=== PATIENT | female | born 1940 | race Hispanic/Latino ===

== ENCOUNTER 2018-11-11 12:21 | Emergency (ER) | payer OTHER ==
--- NOTE | 2018-11-11 12:30 | Event Note ---
ED Screening Note Date of service: 11/11/18 Time: 12:28 ED Screening Note: This is a 77 y.o. F. that presents to the ER with cough and discomfort for 1 days. Reports symptoms similar to 4 months ago when she had pneumonia. This initial assessment/diagnostic orders/clinical plan/treatment(s) is/are subject to change based on patients health status, clinical progression and re- assessment by fellow clinical providers in the ED. Further treatment and workup at subsequent clinical providers discretion. Patient/guardian urged not to elope from the ED as their condition may be serious if not clinically assessed and managed. Initial orders include: CXR
[2018-11-11] MEDS ORDERED: PROVENTIL IH ONE (12:57)
[2018-11-11] MEDS ORDERED: SOLU-Medrol IV ONE (12:58)
--- NOTE | 2018-11-11 12:59 | Emergency Department Report ---
HPI - HPI HPI: 77 YO FEMALE DROPPED OFF AT ER BY FAMILY FOR COUGH AND WHEEZING. PT HOSP 4 M AGO FOR PNA AND NEVER GOT HER MEDS FILLED. SHE HAS NOT SEEN HER PCP SINCE. SHE DENIES TAKING ANY DAILY MEDS HERE. SCREENED IN TRIAGE BY BOB- FAMILY HAS LEFT ER PT DENIES FEVER; POS CHILLS CO CP WITH COUGH; AND "CONGESTION IN CHEST" WHEEZING AT HOME - NO NEBS/ INHALER <HUMBERTO RAIN A - Last Filed: 11/11/18 15:21> <LISA MARTIN P - Last Filed: 11/11/18 15:38> - General Chief Complaint: Upper Respiratory Infection Time Seen by Provider: 11/11/18 12:28 ED Past Medical Hx - Past Medical History Previous Medical History?: Yes Hx Diabetes: Yes Hx Asthma: Yes - Surgical History Past Surgical History?: No - Family History Family history: no significant - Social History Smoking Status: Never Smoker Substance Use Type: None <HUMBERTO RAIN A - Last Filed: 11/11/18 15:21> <LISA MARTIN P - Last Filed: 11/11/18 15:38> - Medications Home Medications: Home Medications Medication Instructions Recorded Confirmed Last Taken Type ALBUTEROL Inhaler (OR & NICU) 2 puff IH QID PRN #1 inhalation 11/11/18 Unknown Rx [ProAir HFA Inhaler] Cetirizine HCl [ZyrTEC] 10 mg PO DAILY #30 capsule 11/11/18 Unknown Rx DOXYCYCLINE Hyclate [Vibramycin 100 mg PO Q12HR #20 capsule 11/11/18 Unknown Rx CAP] Fluticasone [Flonase] 1 spray NS QDAY #1 bottle 11/11/18 Unknown Rx predniSONE [Deltasone] 20 mg PO DAILY #5 tablet 11/11/18 Unknown Rx ED Review of Systems ROS: Stated complaint: COUGHING/WHEEZING Other details as noted in HPI Comment: All other systems reviewed and negative <HUMBERTO RAIN A - Last Filed: 11/11/18 15:21> ROS: Stated complaint: COUGHING/WHEEZING Other details as noted in HPI <LISA MARTIN P - Last Filed: 11/11/18 15:38> Physical Exam - Physical Exam Vital Signs: Vital Signs 11/11/18 12:28 Temperature 98.7 F Pulse Rate 66 Respiratory 16 Rate Blood Pressure 155/54 O2 Sat by Pulse 98 Oximetry Physical Exam: ALERT TUOLUMNE POOR INFORMANT S1S2 WHEEZING BILATERAL NO EDEMA OR JVD ABD SNT <HUMBERTO RAIN A - Last Filed: 11/11/18 15:21> - Physical Exam Vital Signs: Vital Signs 11/11/18 12:28 Temperature 98.7 F Pulse Rate 66 Respiratory 16 Rate Blood Pressure 155/54 O2 Sat by Pulse 98 Oximetry <LISA MARTIN P - Last Filed: 11/11/18 15:38> ED Course Vital Signs 11/11/18 12:28 Temperature 98.7 F Pulse Rate 66 Respiratory 16 Rate Blood Pressure 155/54 O2 Sat by Pulse 98 Oximetry <HUMBERTO RAIN A - Last Filed: 11/11/18 15:21> Vital Signs 11/11/18 12:28 Temperature 98.7 F Pulse Rate 66 Respiratory 16 Rate Blood Pressure 155/54 O2 Sat by Pulse 98 Oximetry <LISA MARTIN P - Last Filed: 11/11/18 15:38> ED Medical Decision Making - Lab Data Result diagrams: 11/11/18 13:19 11/11/18 13:19 - Radiology Data Radiology results: report reviewed, image reviewed R PLEURAL EFFUSION - Medical Decision Making Lab Results 11/11/18 11/11/18 11/11/18 Range/Units 13:19 13:19 13:19 WBC 6.4 (4.5-11.0) K/mm3 RBC 4.58 (3.65-5.03) M/mm3 Hgb 14.2 (10.1-14.3) gm/dl Hct 42.7 (30.3-42.9) % MCV 93 (79-97) fl MCH 31 (28-32) pg MCHC 33 (30-34) % RDW 15.5 H (13.2-15.2) % Plt Count 233 (140-440) K/mm3 Lymph % (Auto) 22.1 (13.4-35.0) % Daggett % (Auto) 9.7 H (0.0-7.3) % Eos % (Auto) 1.6 (0.0-4.3) % Baso % (Auto) 0.5 (0.0-1.8) % Lymph # 1.4 (1.2-5.4) K/mm3 Daggett # 0.6 (0.0-0.8) K/mm3 Eos # 0.1 (0.0-0.4) K/mm3 Baso # 0.0 (0.0-0.1) K/mm3 Seg Neutrophils % 66.1 (40.0-70.0) % Seg Neutrophils # 4.2 (1.8-7.7) K/mm3 Sodium 136 L (137-145) mmol/L Potassium 3.9 (3.6-5.0) mmol/L Chloride 99.0 (98-107) mmol/L Carbon Dioxide 25 (22-30) mmol/L Anion Gap 16 mmol/L BUN 19 H (7-17) mg/dL Creatinine 1.0 (0.7-1.2) mg/dL Estimated GFR 54 ml/min BUN/Creatinine Ratio 19 % Glucose 85 (65-100) mg/dL Calcium 9.1 (8.4-10.2) mg/dL Total Bilirubin 0.30 (0.1-1.2) mg/dL Direct Bilirubin < 0.2 (0-0.2) mg/dL AST 27 (5-40) units/L ALT 17 (7-56) units/L Alkaline Phosphatase 50 (35-129) units/L Troponin T < 0.010 (0.00-0.029) ng/mL NT-Pro-B Natriuret Pep 191.6 (0-900) pg/mL Total Protein 7.2 (6.3-8.2) g/dL Albumin 4.0 (3.9-5) g/dL Albumin/Globulin Ratio 1.3 % Vital Signs 11/11/18 12:28 Temperature 98.7 F Pulse Rate 66 Respiratory 16 Rate Blood Pressure 155/54 O2 Sat by Pulse 98 Oximetry MEDICATED WITH SOLUMEDROL AND DUONEB WITH DEC WHEEZING XRAY NOTED 12 LEAD NAP LABS NOTED WILL DC HOME WITH DC PLAN OF CARE AND FOLLOW UP WITH PCP. - Differential Diagnosis URTI/PNA/ASTHMA AE <HUMBERTO RAIN - Last Filed: 11/11/18 15:21> - Lab Data Result diagrams: 11/11/18 13:19 11/11/18 13:19 - Medical Decision Making Attestation: Available for consultation <LISA MARTIN P - Last Filed: 11/11/18 15:38> Critical care attestation.: If time is entered above; I have spent that time in minutes in the direct care of this critically ill patient, excluding procedure time. <HUMBERTO RAIN A - Last Filed: 11/11/18 15:21> Critical care attestation.: If time is entered above; I have spent that time in minutes in the direct care of this critically ill patient, excluding procedure time. <LISA MARTIN P - Last Filed: 11/11/18 15:38> ED Disposition Is pt being admited?: No Does the pt Need Aspirin: No Time of Disposition: 15:03 <HUMBERTO RAIN A - Last Filed: 11/11/18 15:21> Is pt being admited?: No <LISA MARTIN P - Last Filed: 11/11/18 15:38> Clinical Impression: Asthma with acute exacerbation, URTI (acute upper respiratory infection) Disposition: TO HOME OR SELFCARE Condition: Stable Instructions: Asthma (ED) Additional Instructions: MEDS ORDERED TODAY FOLLOW UP WITH PCP ON THURSDAY HYDRATE WELL WITH WATER MOTRIN OR TYLENOL FOR PAIN OR FEVER OVER THE COUNTER DELSYM FOR COUGH Prescriptions: predniSONE [Deltasone] 20 mg PO DAILY #5 tablet Fluticasone [Flonase] 1 spray NS QDAY #1 bottle ALBUTEROL Inhaler (OR & NICU) [ProAir HFA Inhaler] 2 puff IH QID PRN #1 inhalation PRN Reason: Shortness Of Breath DOXYCYCLINE Hyclate [Vibramycin CAP] 100 mg PO Q12HR #20 capsule Cetirizine HCl [ZyrTEC] 10 mg PO DAILY #30 capsule Referrals: PRIMARY CARE, [Primary Care Provider] - 3-5 Days
--- NOTE | 2018-11-11 13:23 | XRay Report ---
CHEST 2 VIEWS INDICATION: cough, r/o pneumonia. COMPARISON: None. FINDINGS: Support devices: None. Heart: Within normal limits. Pulmonary vasculature: Normal. Lungs/pleura: No acute air space or interstitial disease. No pneumothorax. Additional findings: Degenerative change in the spine. IMPRESSION: 1. No acute findings. 2. No pneumonia. Signer Name: Mateo Parkinson MD Signed: 11/11/2018 1:18 PM Workstation Name: [id number]
[2018-11-11 13:53] LABS: Basophils % (Auto) 0.5 % (0.0-1.8); Eosinophils # (Auto) 0.1 K/mm3 (0.0-0.4); Eosinophils % (Auto) 1.6 % (0.0-4.3); Hematocrit 42.7 % (30.3-42.9); Hemoglobin 14.2 gm/dl (10.1-14.3); Lymphocytes # (Auto) 1.4 K/mm3 (1.2-5.4); Lymphocytes % (Auto) 22.1 % (13.4-35.0); Mean Corpuscular HGB Conc 33 % (30-34); Mean Corpuscular Volume 93 fl (79-97); Monocytes # (Auto) 0.6 K/mm3 (0.0-0.8); Monocytes % (Auto) 9.7 % (0.0-7.3); Platelet Count 233 K/mm3 (140-440); Red Blood Count 4.58 M/mm3 (3.65-5.03); Red Cell Distribution Width 15.5 % (13.2-15.2)
[2018-11-11 14:15] LABS: Calcium 9.1 mg/dL (8.4-10.2)
[2018-11-11 14:19] LABS: Alanine Aminotransferase 17 units/L (7-56); Bilirubin,Direct < 0.2 mg/dL (0-0.2)
[2018-11-11 16:03] VITALS: BP 142/79
== END 2018-11-11 16:03 | disposition home or self-care (01) ==
LOC: ED 12:21
DX: J45.901 Unspecified asthma with (acute) exacerbation (principal); J06.9 Acute upper respiratory infection, unspecified; E11.9 Type 2 diabetes mellitus without complications; J45.909 Unspecified asthma, uncomplicated
CPT/HCPCS: 36415; 71046; 80048; 80076; 83880; 84484; 85025; 93005; 93010; 96374; 99284; J2930; 94640

== ENCOUNTER 2018-12-12 15:21 | Emergency (ER) | payer SELFPAY ==
--- NOTE | 2018-12-12 15:45 | Event Note ---
ED Screening Note Date of service: 12/12/18 Time: 15:41 ED Screening Note: This is a 78 y.o. F. that presents to the ER with headache, left sided facial swelling, and bruising. Patient states she slipped getting out of the tub yesterday and hit her head. This initial assessment/diagnostic orders/clinical plan/treatment(s) is/are subject to change based on patients health status, clinical progression and re- assessment by fellow clinical providers in the ED. Further treatment and workup at subsequent clinical providers discretion. Patient/guardian urged not to elope from the ED as their condition may be serious if not clinically assessed and managed. Initial orders include: CT of head and facial bones
--- NOTE | 2018-12-12 19:06 | Cat Scan Report ---
CT head/brain wo con INDICATION / CLINICAL INFORMATION: 78 years Female; headache. TECHNIQUE: Routine CT head without contrast. All CT scans at this location are performed using CT dos e reduction for ALARA by means of automated exposure control. COMPARISON: None. FINDINGS: BRAIN / INTRACRANIAL CONTENTS: Lacunar infarct versus perivascular space seen in the inferior ganglio capsular region on the right. Similar, less prominent finding noted on the left. No acute hemorrhage, mass effect, midline shift, hydrocephalus, or acute, large territorial infarct. Mild cerebral and cerebellar atrophy. There are areas of decreased attenuation in the white matter of the cerebral hemispheres. These are n onspecific findings and may be related to microangiopathy (hypertension, diabetes, atherosclerosis), given the patient's age. It might be difficult to evaluate for small areas of ischemia without diffus ion imaging by MRI. CRANIOCERVICAL JUNCTION: No significant abnormality. ORBITS: No significant abnormality of visualized orbits. SINUSES / MASTOIDS: There is mild mucosal thickening in the mastoids. Mild mucosal thickening also se en in the left sphenoid sinus. ADDITIONAL FINDINGS: Subcutaneous soft tissue swelling seen in the left periorbital region, laterally . No definitive signs of underlying fracture appreciated. Atherosclerotic disease seen in the anterior circulation. IMPRESSION: 1. No focal mass, intracranial hemorrhage, hydrocephalus, or acute, large territorial infarct. Signer Name: Miller Sosa MD, III Signed: 12/12/2018 7:01 PM Workstation Name: [id number]
--- NOTE | 2018-12-12 19:10 | Cat Scan Report ---
CT facial bones wo con INDICATION / CLINICAL INFORMATION: 78 years Female; headache, left sided bruising, r/o fx. TECHNIQUE: Thin cut axial images obtained to the facial bones. Sagittal and coronal reconstructions performed. A ll CT scans at this location are performed using CT dose reduction for ALARA by means of automated ex posure control. COMPARISON: None available. FINDINGS: Subcutaneous soft tissue swelling is seen in the periorbital region on the left, laterally. Findings extend in the left malar region, minimally. No signs of underlying facial fracture appreciated. There is mild mucosal thickening in the ethmoids and maxillary antra. Small mucous retention cyst/gema yp suggested inferiorly on the left. IMPRESSION: 1. No signs of acute bony facial trauma. Signer Name: Miller Sosa MD, III Signed: 12/12/2018 7:06 PM Workstation Name: [id number]
--- NOTE | 2018-12-12 19:45 | Emergency Department Report ---
ED Head Trauma HPI - General Chief complaint: Fall Stated complaint: LFT SIDE FACE SWELLING/KNOT PAIN Time Seen by Provider: 12/12/18 15:41 Source: family Mode of arrival: Ambulatory Limitations: Other - History of Present Illness Initial comments: Patient is a 78-year-old female who suffered a fall this morning. Patient was getting out of the tub and slipped and hit her left side of her face as well as the back of her head. Patient states there was no loss consciousness but she did have a headache and felt some mild dizziness when this occurred. Patient is complaining of a mild headache which is a 6 out of 10 in severity. She denies gait disturbances or nausea vomiting. - Related Data Previous Rx's Medication Instructions Recorded Last Taken Type ALBUTEROL Inhaler (OR & NICU) 2 puff IH QID PRN #1 inhalation 11/11/18 Unknown Rx [ProAir HFA Inhaler] Cetirizine HCl [ZyrTEC] 10 mg PO DAILY #30 capsule 11/11/18 Unknown Rx DOXYCYCLINE Hyclate [Vibramycin 100 mg PO Q12HR #20 capsule 11/11/18 Unknown Rx CAP] Fluticasone [Flonase] 1 spray NS QDAY #1 bottle 11/11/18 Unknown Rx predniSONE [Deltasone] 20 mg PO DAILY #5 tablet 11/11/18 Unknown Rx traMADol [Ultram] 50 mg PO Q6HR PRN #10 tablet 12/12/18 Unknown Rx Allergies/Adverse reactions: Allergies Allergy/AdvReac Type Severity Reaction Status Date / Time No Known Allergies Allergy Verified 12/12/18 15:23 ED Review of Systems ROS: Stated complaint: LFT SIDE FACE SWELLING/KNOT PAIN Other details as noted in HPI Comment: All other systems reviewed and negative ED Past Medical Hx - Past Medical History Hx Diabetes: Yes Hx Asthma: Yes - Social History Smoking Status: Never Smoker Substance Use Type: None - Medications Home Medications: Home Medications Medication Instructions Recorded Confirmed Last Taken Type ALBUTEROL Inhaler (OR & NICU) 2 puff IH QID PRN #1 inhalation 11/11/18 Unknown Rx [ProAir HFA Inhaler] Cetirizine HCl [ZyrTEC] 10 mg PO DAILY #30 capsule 11/11/18 Unknown Rx DOXYCYCLINE Hyclate [Vibramycin 100 mg PO Q12HR #20 capsule 11/11/18 Unknown Rx CAP] Fluticasone [Flonase] 1 spray NS QDAY #1 bottle 11/11/18 Unknown Rx predniSONE [Deltasone] 20 mg PO DAILY #5 tablet 11/11/18 Unknown Rx traMADol [Ultram] 50 mg PO Q6HR PRN #10 tablet 12/12/18 Unknown Rx ED Physical Exam - General Limitations: Other General appearance: alert, in no apparent distress - Head Head exam: Present: normocephalic. Absent: atraumatic (patient with swelling and bruising above and below the left eye.Extraocular ocular movements are intact. There is tenderness on palpation of this area.) - Eye Eye exam: Present: normal appearance, PERRL, EOMI - ENT ENT exam: Present: mucous membranes moist - Neck Neck exam: Present: normal inspection, full ROM. Absent: tenderness - Respiratory Respiratory exam: Present: normal lung sounds bilaterally. Absent: respiratory distress, wheezes, rales, rhonchi - Cardiovascular Cardiovascular Exam: Present: regular rate, normal rhythm. Absent: systolic murmur, diastolic murmur, rubs, gallop - GI/Abdominal GI/Abdominal exam: Present: soft, normal bowel sounds. Absent: distended, tenderness, guarding, rebound - Extremities Exam Extremities exam: Present: normal inspection - Back Exam Back exam: Present: normal inspection - Neurological Exam Neurological exam: Present: alert, oriented X3 - Psychiatric Psychiatric exam: Present: normal affect, normal mood - Skin Skin exam: Present: warm, dry, intact, normal color. Absent: rash ED Course Vital Signs 12/12/18 12/12/18 12/12/18 15:42 18:18 18:31 Temperature 98.4 F Pulse Rate 70 Respiratory 20 Rate Blood Pressure 140/48 141/52 O2 Sat by Pulse 95 97 98 Oximetry 12/12/18 18:34 Temperature Pulse Rate Respiratory 20 Rate Blood Pressure O2 Sat by Pulse 97 Oximetry - Radiology Data Radiology results: report reviewed (T of the head without contrast and the f acial bones are within normal limits and showed no intracranial bleed or fracture) Critical care attestation.: If time is entered above; I have spent that time in minutes in the direct care of this critically ill patient, excluding procedure time. ED Disposition Clinical Impression: Closed head injury Qualifiers: Encounter type: initial encounter Qualified Code(s): S09.90XA - Unspecified injury of head, initial encounter Facial contusion Qualifiers: Encounter type: initial encounter Qualified Code(s): S00.83XA - Contusion of other part of head, initial encounter Disposition: TO HOME OR SELFCARE Is pt being admited?: No Does the pt Need Aspirin: No Condition: Stable Instructions: Minor Head Injury (ED), Black Eye (ED) Prescriptions: traMADol [Ultram] 50 mg PO Q6HR PRN #10 tablet PRN Reason: Pain Time of Disposition: 19:47
[2018-12-12] MEDS ORDERED: ULTRAM PO ONE (19:47)
[2018-12-12 20:39] VITALS: BP 114/57
== END 2018-12-12 20:30 | disposition home or self-care (01) ==
LOC: ED 15:21
DX: S00.83XA Contusion of other part of head, initial encounter (principal); S09.90XA Unspecified injury of head, initial encounter; J45.909 Unspecified asthma, uncomplicated; E11.9 Type 2 diabetes mellitus without complications; W01.0XXA Fall on same level from slipping, tripping and stumbling without subsequent striking against object, initial encounter; Y93.89 Activity, other specified; Y92.89 Other specified places as the place of occurrence of the external cause; Y99.8 Other external cause status
CPT/HCPCS: 70450; 70486

== ENCOUNTER 2018-12-21 11:08 | Emergency (ER) | payer MEDICARE ==
[2018-12-21 11:23] VITALS: BP 155/56
--- NOTE | 2018-12-21 11:24 | Emergency Department Report ---
Blank Doc - Documentation Documentation: 78-year-old female that presents with URI symptoms. This initial assessment/diagnostic orders/clinical plan/treatment(s) is/are subject to change based on patient's health status, clinical progression and re- assessment by fellow clinical providers in the ED. Further treatment and workup at subsequent clinical providers discretion. Patient/guardians urged not to elope from the ED as their condition may be serious if not clinically assessed and managed. Initial orders include: 1- Patient sent to [facility] for further evaluation and treatment 2- cxr
--- NOTE | 2018-12-21 12:17 | XRay Report ---
CHEST PA AND LATERAL VIEWS INDICATION: cough. COMPARISON: 11/11/2018 FINDINGS: Support devices: None Heart: Stable. Lungs/Pleura: No acute pulmonary or pleural findings. IMPRESSION: 1. No active disease and no interval change. Signer Name: Orlando Lubin MD Signed: 12/21/2018 12:13 PM Workstation Name: [id number]
[2018-12-21] MEDS ORDERED: ALBUTEROL 2.5 MG/3 ML NEBU IH ONE (13:00)
[2018-12-21] MEDS ORDERED: IPRATROPIUM 0.02% NEBU 2.5 ML IH ONE (13:00)
[2018-12-21] MEDS ORDERED: FUROSEMIDE 20 MG TAB PO ONE (13:01)
--- NOTE | 2018-12-21 15:08 | Emergency Department Report ---
ED Asthma HPI - General Chief Complaint: Upper Respiratory Infection Stated Complaint: COUGH/WHEEZING Time Seen by Provider: 12/21/18 11:22 Source: family Mode of arrival: Ambulatory Limitations: No Limitations - History of Present Illness Initial Comments: Is a 78-year-old female who is here complaining of a cough congestion and wheezing. Patient states that she no longer has albuterol inhaler. Patient's states she was she caught a mild cold approximate 2-3 weeks ago was continued to have cough and wheeze. Patient states she has subjective fevers and chills. She denies nausea vomiting diarrhea neck stiffness or sore throat at this time. - Related Data Previous Rx's Medication Instructions Recorded Last Taken Type ALBUTEROL Inhaler (OR & NICU) 2 puff IH QID PRN #1 inhalation 11/11/18 Unknown Rx [ProAir HFA Inhaler] Cetirizine HCl [ZyrTEC] 10 mg PO DAILY #30 capsule 11/11/18 Unknown Rx DOXYCYCLINE Hyclate [Vibramycin 100 mg PO Q12HR #20 capsule 11/11/18 Unknown Rx CAP] Fluticasone [Flonase] 1 spray NS QDAY #1 bottle 11/11/18 Unknown Rx predniSONE [Deltasone] 20 mg PO DAILY #5 tablet 11/11/18 Unknown Rx traMADol [Ultram] 50 mg PO Q6HR PRN #10 tablet 12/12/18 Unknown Rx ALBUTEROL Inhaler (OR & NICU) 2 puff IH QID PRN #1 inhalation 12/21/18 Unknown Rx [ProAir HFA Inhaler] Azithromycin [Zithromax Z-CARMEN] 250 mg PO DAILY #6 tablet 12/21/18 Unknown Rx Benzonatate [Tessalon Perles] 100 mg PO Q8HR #10 capsule 12/21/18 Unknown Rx Furosemide [Lasix] 20 mg PO QDAY #7 tablet 12/21/18 Unknown Rx Allergies Allergy/AdvReac Type Severity Reaction Status Date / Time No Known Allergies Allergy Verified 12/12/18 15:23 ED Review of Systems ROS: Stated complaint: COUGH/WHEEZING Other details as noted in HPI Comment: All other systems reviewed and negative Musculoskeletal: other (lower extremity edema chronically. has been off lasix for 'months') ED Past Medical Hx - Past Medical History Previous Medical History?: Yes Hx Diabetes: Yes Hx Asthma: Yes - Surgical History Past Surgical History?: No - Social History Smoking Status: Never Smoker Substance Use Type: None - Medications Home Medications: Home Medications Medication Instructions Recorded Confirmed Last Taken Type ALBUTEROL Inhaler (OR & NICU) 2 puff IH QID PRN #1 inhalation 11/11/18 Unknown Rx [ProAir HFA Inhaler] Cetirizine HCl [ZyrTEC] 10 mg PO DAILY #30 capsule 11/11/18 Unknown Rx DOXYCYCLINE Hyclate [Vibramycin 100 mg PO Q12HR #20 capsule 11/11/18 Unknown Rx CAP] Fluticasone [Flonase] 1 spray NS QDAY #1 bottle 11/11/18 Unknown Rx predniSONE [Deltasone] 20 mg PO DAILY #5 tablet 11/11/18 Unknown Rx traMADol [Ultram] 50 mg PO Q6HR PRN #10 tablet 12/12/18 Unknown Rx ALBUTEROL Inhaler (OR & NICU) 2 puff IH QID PRN #1 inhalation 12/21/18 Unknown Rx [ProAir HFA Inhaler] Azithromycin [Zithromax Z-CARMEN] 250 mg PO DAILY #6 tablet 12/21/18 Unknown Rx Benzonatate [Tessalon Perles] 100 mg PO Q8HR #10 capsule 12/21/18 Unknown Rx Furosemide [Lasix] 20 mg PO QDAY #7 tablet 12/21/18 Unknown Rx ED Physical Exam - General Limitations: No Limitations General appearance: alert, in no apparent distress - Head Head exam: Present: atraumatic, normocephalic - Eye Eye exam: Present: normal appearance - ENT ENT exam: Present: mucous membranes moist - Neck Neck exam: Present: normal inspection. Absent: tenderness, meningismus - Respiratory Respiratory exam: Present: normal lung sounds bilaterally, wheezes, prolonged expiratory. Absent: respiratory distress, rales, rhonchi, stridor - Cardiovascular Cardiovascular Exam: Present: regular rate, normal rhythm, normal heart sounds. Absent: systolic murmur, diastolic murmur, rubs, gallop - GI/Abdominal GI/Abdominal exam: Present: soft, normal bowel sounds. Absent: distended, tenderness, guarding, rebound - Extremities Exam Extremities exam: Present: other (+2 edema bilateral lower legs) - Back Exam Back exam: Present: normal inspection - Neurological Exam Neurological exam: Present: alert, oriented X3 - Psychiatric Psychiatric exam: Present: normal affect, normal mood - Skin Skin exam: Present: warm, dry, intact, normal color. Absent: rash ED Course Vital Signs 12/21/18 11:21 Temperature 98.1 F Pulse Rate 71 Respiratory 20 Rate Blood Pressure 155/56 O2 Sat by Pulse 98 Oximetry ED Medical Decision Making - Radiology Data Ordering Physician: TIKI ECHOLS NP Date of Service: 12/21/18 Procedure(s): XR chest routine 2V Accession Number(s): [id number] cc: TIKI ECHOLS NP Fluoro Time In Minutes: CHEST PA AND LATERAL VIEWS INDICATION: cough. COMPARISON: 11/11/2018 FINDINGS: Support devices: None Heart: Stable. Lungs/Pleura: No acute pulmonary or pleural findings. IMPRESSION: 1. No active disease and no interval change. Signer Name: Orlando Lubin MD Signed: 12/21/2018 12:13 PM - Medical Decision Making Patient is a 78-year-old female who is presenting with cough congestion and a mild wheeze. Patient was given a neb treatment say she feels much improved. Because of leg edema patient was given some Lasix as well but does not appear to have any pulmonary edema on chest x-ray. Patient had refills of her medications to control her symptoms and the patient be discharged home. Critical care attestation.: If time is entered above; I have spent that time in minutes in the direct care of this critically ill patient, excluding procedure time. ED Disposition Clinical Impression: Chronic bronchitis Asthma exacerbation Qualifiers: Asthma severity: moderate Asthma persistence: unspecified Qualified Code(s): J45.901 - Unspecified asthma with (acute) exacerbation Disposition: -01 TO HOME OR SELFCARE Is pt being admited?: No Does the pt Need Aspirin: No Condition: Stable Instructions: Chronic Bronchitis (ED), Asthma (ED) Referrals: PRIMARY CARE, [Primary Care Provider] - 3-5 Days Time of Disposition: 15:10
== END 2018-12-21 15:28 | disposition home or self-care (01) ==
LOC: ED 11:08
DX: J45.901 Unspecified asthma with (acute) exacerbation (principal); E11.9 Type 2 diabetes mellitus without complications; Z79.899 Other long term (current) drug therapy
CPT/HCPCS: 71046; 94640

== ENCOUNTER 2019-03-18 18:06 | Inpatient (IN) | payer MEDICARE ==
[2019-03-18] MEDS ORDERED: methylPREDNISolone Sod Succinate 125 MG/2 ML INJ IV ONE (19:00)
[2019-03-18] MEDS ORDERED: IPRATROPIUM/ALBUTEROL SULFATE 3 ML AMPUL.NEB IH ONE (19:03)
[2019-03-18] MEDS ORDERED: MAGNESIUM SULFATE 2 GM/50 ML BAG IV ONE (19:03)
--- NOTE | 2019-03-18 19:04 | Emergency Department Report ---
ED Shortness of Breath HPI - General Chief Complaint: Dyspnea/Respdistress Stated Complaint: DIFFICULTY BREATHING Time Seen by Provider: 03/18/19 19:00 Source: EMS Mode of arrival: Ambulatory Limitations: No Limitations - History of Present Illness Initial Comments: Patient is a 78-year-old female who presents to [facility] complains of difficulty breathing and shortness of breath, cough and wheezing. Patient states this started 1 day ago. Patient states her symptoms are better with rest and worse with exertion. Patient states her symptoms are also worse with lying flat. Patient states she has a history of asthma and COPD. Patient states this feels like an asthma attack. Patient was brought in by EMS. Patient denies chest pain. Patient denies abdominal pain. Patient denies headache. Patient denies blurry vision. Patient states she took multiple nebulizers at home with no improvement. MD Complaint: shortness of breath, cough, "asthma attack" -: Sudden Severity: severe Pain Scale: 0 Consistency: constant Improves With: oxygen, rest, bronchodilators, upright position Worsens With: lying flat, exertion, movement, coughing, inspiration Known History Of: COPD, asthma Treatments Prior to Arrival: oxygen, bronchodilator - Related Data Home Oxygen Therapy: No Home Medications Medication Instructions Recorded Confirmed Last Taken Amlodipine Besylate [Norvasc] 1 tab PO DAILY 03/18/19 03/18/19 Unknown Fluticasone/Salmeterol [Advair 1 puff IH BID 03/18/19 03/18/19 Unknown Diskus 100-50 mcg] Levothyroxine [Synthroid] 1 tab PO DAILY 03/18/19 03/18/19 Unknown Omeprazole 1 cap PO DAILY 03/18/19 03/18/19 Unknown Roflumilast [Daliresp] 1 tab PO DAILY 03/18/19 03/18/19 Unknown Sertraline [Zoloft] 1 tab PO DAILY 03/18/19 03/18/19 Unknown Simvastatin 40 mg PO HS 03/18/19 03/18/19 Unknown Torsemide [Demadex] 2 tab PO DAILY 03/18/19 03/18/19 Unknown metFORMIN [Glucophage] 1 tab PO DAILY 03/18/19 03/18/19 Unknown risperiDONE [RisperDAL] 1 tab PO BID 03/18/19 03/18/19 Unknown Previous Rx's Medication Instructions Recorded Last Taken Type predniSONE [Deltasone] 20 mg PO DAILY #5 tablet 11/11/18 Unknown Rx Allergies Allergy/AdvReac Type Severity Reaction Status Date / Time No Known Allergies Allergy Verified 12/12/18 15:23 ED Review of Systems ROS: Stated complaint: DIFFICULTY BREATHING Other details as noted in HPI Constitutional: denies: chills, fever Eyes: denies: eye pain, eye discharge, vision change ENT: denies: ear pain, throat pain Respiratory: cough, shortness of breath, SOB with exertion, SOB at rest, wheezing Cardiovascular: denies: chest pain, palpitations Endocrine: no symptoms reported Gastrointestinal: denies: abdominal pain, nausea, diarrhea Genitourinary: denies: urgency, dysuria, discharge Musculoskeletal: denies: back pain, joint swelling, arthralgia Skin: denies: rash, lesions Neurological: denies: headache, weakness, paresthesias Psychiatric: denies: anxiety, depression Hematological/Lymphatic: denies: easy bleeding, easy bruising ED Past Medical Hx - Past Medical History Previous Medical History?: Yes Hx Hypertension: Yes Hx Diabetes: Yes Hx Asthma: Yes - Surgical History Past Surgical History?: No - Family History Family history: no significant - Social History Smoking Status: Former Smoker Substance Use Type: None - Medications Home Medications: Home Medications Medication Instructions Recorded Confirmed Last Taken Type predniSONE [Deltasone] 20 mg PO DAILY #5 tablet 11/11/18 03/18/19 Unknown Rx Amlodipine Besylate [Norvasc] 1 tab PO DAILY 03/18/19 03/18/19 Unknown History Fluticasone/Salmeterol [Advair 1 puff IH BID 03/18/19 03/18/19 Unknown History Diskus 100-50 mcg] Levothyroxine [Synthroid] 1 tab PO DAILY 03/18/19 03/18/19 Unknown History Omeprazole 1 cap PO DAILY 03/18/19 03/18/19 Unknown History Roflumilast [Daliresp] 1 tab PO DAILY 03/18/19 03/18/19 Unknown History Sertraline [Zoloft] 1 tab PO DAILY 03/18/19 03/18/19 Unknown History Simvastatin 40 mg PO HS 03/18/19 03/18/19 Unknown History Torsemide [Demadex] 2 tab PO DAILY 03/18/19 03/18/19 Unknown History metFORMIN [Glucophage] 1 tab PO DAILY 03/18/19 03/18/19 Unknown History risperiDONE [RisperDAL] 1 tab PO BID 03/18/19 03/18/19 Unknown History ED Physical Exam - General Limitations: No Limitations General appearance: alert, in distress - Head Head exam: Present: atraumatic, normocephalic - Eye Eye exam: Present: normal appearance - ENT ENT exam: Present: mucous membranes moist - Neck Neck exam: Present: normal inspection - Respiratory Respiratory exam: Present: respiratory distress, wheezes, decreased breath s ounds - Cardiovascular Cardiovascular Exam: Present: regular rate, normal rhythm. Absent: systolic murmur, diastolic murmur, rubs, gallop - GI/Abdominal GI/Abdominal exam: Present: soft, normal bowel sounds. Absent: distended, tenderness, guarding - Extremities Exam Extremities exam: Present: normal inspection - Back Exam Back exam: Present: normal inspection - Neurological Exam Neurological exam: Present: alert, oriented X3 - Psychiatric Psychiatric exam: Present: normal affect, normal mood - Skin Skin exam: Present: warm, dry, intact, normal color. Absent: rash ED Course Vital Signs 03/18/19 03/18/19 03/18/19 18:40 18:45 19:15 Temperature 98.6 F 98.6 F 98.9 F Pulse Rate 84 81 78 Pulse Rate [ Anterior Bilateral Throughout] Respiratory 17 17 19 Rate Respiratory Rate [Anterior Bilateral Throughout] Blood Pressure 130/76 Blood Pressure 116/37 124/68 [Left] O2 Sat by Pulse 99 98 100 Oximetry 03/18/19 03/18/19 03/18/19 19:26 19:30 20:30 Temperature Pulse Rate 81 Pulse Rate [ 80 Anterior Bilateral Throughout] Respiratory 21 22 Rate Respiratory 27 H Rate [Anterior Bilateral Throughout] Blood Pressure 128/48 120/39 Blood Pressure [Left] O2 Sat by Pulse 100 96 Oximetry 03/18/19 03/18/19 03/18/19 20:58 21:00 21:09 Temperature Pulse Rate 82 91 H 83 Pulse Rate [ Anterior Bilateral Throughout] Respiratory 19 23 28 H Rate Respiratory Rate [Anterior Bilateral Throughout] Blood Pressure 120/39 130/42 130/42 Blood Pressure [Left] O2 Sat by Pulse 97 96 96 Oximetry 03/18/19 03/18/19 03/18/19 21:16 21:20 21:30 Temperature Pulse Rate 84 83 93 H Pulse Rate [ Anterior Bilateral Throughout] Respiratory 27 H 26 H 24 Rate Respiratory Rate [Anterior Bilateral Throughout] Blood Pressure 127/41 135/46 135/46 Blood Pressure [Left] O2 Sat by Pulse 96 95 96 Oximetry 03/18/19 03/18/19 03/18/19 21:40 21:50 22:00 Temperature Pulse Rate 85 86 83 Pulse Rate [ Anterior Bilateral Throughout] Respiratory 26 H 22 25 H Rate Respiratory Rate [Anterior Bilateral Throughout] Blood Pressure 135/49 130/42 126/48 Blood Pressure [Left] O2 Sat by Pulse 97 95 94 Oximetry 03/18/19 03/18/19 22:10 22:20 Temperature Pulse Rate 77 83 Pulse Rate [ Anterior Bilateral Throughout] Respiratory 27 H 25 H Rate Respiratory Rate [Anterior Bilateral Throughout] Blood Pressure 126/48 129/54 Blood Pressure [Left] O2 Sat by Pulse 97 96 Oximetry - Reevaluation(s) Reevaluation #1: Patient's work of breathing has improved. Patient's lung sounds have improved. 03/18/19 19:58 Reevaluation #2: I discussed all results the patient. Discussed plan of care with patient. patient agrees plan of care. Patient will be admitted to the hospitalist service. 03/18/19 20:07 - Consultations Consultation #1: Hospitalist consult for admission. Hospitalist admit patient. 03/18/19 20:06 ED Medical Decision Making - Lab Data Result diagrams: 03/18/19 19:06 03/18/19 19:06 - EKG Data -: EKG Interpreted by Ca EKG shows normal: sinus rhythm, axis, intervals, QRS complexes, ST-T waves Rate: normal - Radiology Data Radiology results: report reviewed, image reviewed CHEST 1 VIEW 03/18/2019 7:10 PM INDICATION / CLINICAL INFORMATION: Dyspnea. COMPARISON: Chest x-ray 12/21/2018 FINDINGS: SUPPORT DEVICES: None. HEART / MEDIASTINUM: Cardiac silhouette is enlarged for AP technique. LUNGS / PLEURA: No significant pulmonary or pleural abnormality. No pneumothorax. ADDITIONAL FINDINGS: No significant additional findings. IMPRESSION: 1. Stable cardiomegaly without CHF - Medical Decision Making Patient is a 78-year-old female that presents emergency room with complaints of difficulty breathing shortness of breath. Patient found to have status asthmaticus and a COPD exacerbation. Patient admitted to the hospital service. Patient given multiple medications and patient continued to have difficulties in breathing and wheezing. Patient's work to breathe did improve with magnesium, DuoNeb, Solu-Medrol. Patient was given antibiotics empirically. Patient's labs essentially unremarkable except for hypokalemia. Patient given a K rider. - Differential Diagnosis sob, jose, COPD exacerbation, status asthmaticus. Pneumonia. Critical Care Time: Yes Critical care time in (mins) excluding proc time.: 35 Critical care attestation.: If time is entered above; I have spent that time in minutes in the direct care of this critically ill patient, excluding procedure time. Critical Care Time: 35 minutes ED Disposition Clinical Impression: Hypokalemia, SOB (shortness of breath), Difficulty breathing, COPD exacerbation Status asthmaticus Qualifiers: Asthma severity: moderate Asthma persistence: persistent Qualified Code(s): J45.42 - Moderate persistent asthma with status asthmaticus Disposition: OP ADMIT IP TO THIS HOSP Is pt being admited?: Yes Does the pt Need Aspirin: No Condition: Fair Time of Disposition: 20:07
[2019-03-18 19:22] LABS: Basophils % (Auto) 0.3 % (0.0-1.8); Eosinophils % (Auto) 0.4 % (0.0-4.3); Hematocrit 35.2 % (30.3-42.9); Hemoglobin 11.6 gm/dl (10.1-14.3); Lymphocytes % (Auto) 8.9 % (13.4-35.0); Mean Corpuscular HGB Conc 33 % (30-34); Mean Corpuscular Volume 93 fl (79-97); Monocytes # (Auto) 0.4 K/mm3 (0.0-0.8); Monocytes % (Auto) 3.8 % (0.0-7.3); Platelet Count 292 K/mm3 (140-440); Red Blood Count 3.79 M/mm3 (3.65-5.03); Red Cell Distribution Width 16.2 % (13.2-15.2)
[2019-03-18 19:44] LABS: Alanine Aminotransferase 16 units/L (7-56); Albumin 3.5 g/dL (3.9-5); BUN/Creatinine Ratio 17; Blood Urea Nitrogen 15 mg/dL (7-17); Calcium 8.8 mg/dL (8.4-10.2); Hemolysis Index 11
[2019-03-18] MEDS ORDERED: CEFEPIME/NS 2 GM/100 ML 2 GM/100 ML BAG IV ONE (20:02)
--- NOTE | 2019-03-18 21:17 | XRay Report ---
CHEST 1 VIEW 03/18/2019 7:10 PM INDICATION / CLINICAL INFORMATION: Dyspnea. COMPARISON: Chest x-ray 12/21/2018 FINDINGS: SUPPORT DEVICES: None. HEART / MEDIASTINUM: Cardiac silhouette is enlarged for AP technique. LUNGS / PLEURA: No significant pulmonary or pleural abnormality. No pneumothorax. ADDITIONAL FINDINGS: No significant additional findings. IMPRESSION: 1. Stable cardiomegaly without CHF Signer Name: Davin Vera MD Signed: 03/18/2019 9:12 PM Workstation Name: [id number]
[2019-03-18] MEDS: POTASSIUM CHLORIDE 10 MEQ 10 MEQ/100 ML BAG IV SCH ×2 (21:29→23:52)
[2019-03-18] MEDS ORDERED: ALBUTEROL 2.5 MG/3 ML NEBU IH PRN (21:33)
[2019-03-18] MEDS ORDERED: ONDANSETRON 4 MG/2 ML INJ IV PRN (21:33)
[2019-03-18] MEDS ORDERED: ACETAMINOPHEN 325 MG TAB PO PRN (21:33)
[2019-03-18] MEDS ORDERED: oxyCODONE /ACETAMINOPHEN 5-325MG TAB PO PRN (21:33)
--- NOTE | 2019-03-18 21:33 | History and Physical Report ---
History of Present Illness Date of examination: 03/18/19 Date of admission: 03/18/19 20:51 Chief complaint: "I am wheezing" History of present illness: Patient is 78-year-old female with a past medical history of diabetes mellitus, hypertension and asthma who presents to ER with complaints of difficulty breathing and cough since this evening. Patient reports recent history of pneumonia with outpatient treatment 01/2019. Her difficulty in breathing and cough are exacerbated this evening after she started to wheeze, her symptoms were made better with rest and the use of her inhaler. She reports her cough as unproductive and described as dry and hacking. She denies use of home oxygen, chest pain or nausea, vomiting. 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 denies: Lives alone, smoking Medications and Allergies Allergies Allergy/AdvReac Type Severity Reaction Status Date / Time No Known Allergies Allergy Verified 12/12/18 15:23 Home Medications Medication Instructions Recorded Confirmed Last Taken Type predniSONE [Deltasone] 20 mg PO DAILY #5 tablet 11/11/18 03/18/19 Unknown Rx Amlodipine Besylate [Norvasc] 1 tab PO DAILY 03/18/19 03/18/19 Unknown History Fluticasone/Salmeterol [Advair 1 puff IH BID 03/18/19 03/18/19 Unknown History Diskus 100-50 mcg] Levothyroxine [Synthroid] 1 tab PO DAILY 03/18/19 03/18/19 Unknown History Omeprazole 1 cap PO DAILY 03/18/19 03/18/19 Unknown History Roflumilast [Daliresp] 1 tab PO DAILY 03/18/19 03/18/19 Unknown History Sertraline [Zoloft] 1 tab PO DAILY 03/18/19 03/18/19 Unknown History Simvastatin 40 mg PO HS 03/18/19 03/18/19 Unknown History Torsemide [Demadex] 2 tab PO DAILY 03/18/19 03/18/19 Unknown History metFORMIN [Glucophage] 1 tab PO DAILY 03/18/19 03/18/19 Unknown History risperiDONE [RisperDAL] 1 tab PO BID 03/18/19 03/18/19 Unknown History Active Meds: Active Medications Potassium Chloride (Kcl 10meq/100ml) 10 meq in 100 mls @ 100 mls/hr IV Q1H LEEANNA Stop: 03/18/19 23:59 Last Admin: 03/18/19 21:29 Dose: 100 mls/hr Documented by: Review of Systems All systems: negative Cardiovascular: shortness of breath, high blood pressure Respiratory: wheezing Exam - Physical Exam Narrative exam: - Physical Exam Narrative exam: General appearance: Present: No distress noted - EENT Eyes: Present: PERRL ENT: hearing intact, clear oral mucosa - Neck Neck: Present: supple, normal ROM - Respiratory Respiratory effort: normal Respiratory: bilateral: Wheezing - Cardiovascular Heart rate:80 Heart Sounds: Present: S1 & S2. Absent: rub, click - Extremities Extremities: pulses symmetrical, No edema Peripheral Pulses: within normal limits - Abdominal General gastrointestinal: Present: , non-distended, normal bowel sounds genitourinary: Present: normal - Integumentary Integumentary: Present: clear, warm, dry - Musculoskeletal Musculoskeletal: gait normal, strength equal bilaterally - Psychiatric Psychiatric: appropriate mood/affect, intact judgment & insight - Neurologic Neurologic: CNII-XII intact, moves all extremities - Constitutional Vitals: Temp Pulse Resp BP Pulse Ox 98.9 F 91 H 23 130/42 96 03/18/19 19:15 03/18/19 21:00 03/18/19 21:00 03/18/19 21:00 03/18/19 21:00 Results - Labs CBC & Chem 7: 03/18/19 19:06 03/18/19 19:06 Labs: Laboratory Last Values WBC 10.7 K/mm3 (4.5-11.0) 03/18/19 19:06 RBC 3.79 M/mm3 (3.65-5.03) 03/18/19 19:06 Hgb 11.6 gm/dl (10.1-14.3) 03/18/19 19:06 Hct 35.2 % (30.3-42.9) 03/18/19 19:06 MCV 93 fl (79-97) 03/18/19 19:06 MCH 31 pg (28-32) 03/18/19 19:06 MCHC 33 % (30-34) 03/18/19 19:06 RDW 16.2 % (13.2-15.2) H 03/18/19 19:06 Plt Count 292 K/mm3 (140-440) 03/18/19 19:06 Lymph % (Auto) 8.9 % (13.4-35.0) L 03/18/19 19:06 [place] % (Auto) 3.8 % (0.0-7.3) 03/18/19 19:06 Eos % (Auto) 0.4 % (0.0-4.3) 03/18/19 19:06 Baso % (Auto) 0.3 % (0.0-1.8) 03/18/19 19:06 Lymph # 1.0 K/mm3 (1.2-5.4) L 03/18/19 19:06 [place] # 0.4 K/mm3 (0.0-0.8) 03/18/19 19:06 Eos # 0.0 K/mm3 (0.0-0.4) 03/18/19 19:06 Baso # 0.0 K/mm3 (0.0-0.1) 03/18/19 19:06 Seg Neutrophils % 86.6 % (40.0-70.0) H 03/18/19 19:06 Seg Neutrophils # 9.3 K/mm3 (1.8-7.7) H 03/18/19 19:06 Sodium 143 mmol/L (137-145) 03/18/19 19:06 Potassium 2.9 mmol/L (3.6-5.0) L* 03/18/19 19:06 Chloride 105.5 mmol/L (98-107) 03/18/19 19:06 Carbon Dioxide 20 mmol/L (22-30) L 03/18/19 19:06 Anion Gap 20 mmol/L 03/18/19 19:06 BUN 15 mg/dL (7-17) 03/18/19 19:06 Creatinine 0.9 mg/dL (0.7-1.2) 03/18/19 19:06 Estimated GFR > 60 ml/min 03/18/19 19:06 BUN/Creatinine Ratio 17 % 03/18/19 19:06 Glucose 208 mg/dL (65-100) H 03/18/19 19:06 Calcium 8.8 mg/dL (8.4-10.2) 03/18/19 19:06 Total Bilirubin < 0.20 mg/dL (0.1-1.2) 03/18/19 19:06 AST 20 units/L (5-40) 03/18/19 19:06 ALT 16 units/L (7-56) 03/18/19 19:06 Alkaline Phosphatase 47 units/L (35-129) 03/18/19 19:06 Troponin T < 0.010 ng/mL (0.00-0.029) 03/18/19 19:06 Total Protein 6.1 g/dL (6.3-8.2) L 03/18/19 19:06 Albumin 3.5 g/dL (3.9-5) L 03/18/19 19:06 Albumin/Globulin Ratio 1.3 % 03/18/19 19:06 - Imaging and Cardiology EKG: report reviewed (Sinus rhythm) Chest x-ray: report reviewed (IMPRESSION: 1. Stable cardiomegaly without CHF ) Assessment and Plan Assessment and plan: Acute Asthma exacerbation - Scheduled nebs, breathing treatment and as needed, empiric steroid - Supplemental oxygen to keep oxygen saturation above 92% - Consider to consult pulmonary if no improvement in next 24 hours -Antibiotic started prophylaxis in ED Hypokalemia -Severe -Potassium on admission 2.9 -Received potassium replacement -Follow-up on repeat potassium labs -Continue to monitor replete prn DM -POC BG monitoring -SSI coverage prn Obesity -BMI 33.8kg -Counseled for diet and lifestyle modifications DVT prophylaxis -SCDs bilateral -Lovenox VTE prophylaxis?: Chemical Plan of care discussed with patient/family: Yes
[2019-03-18] MEDS ORDERED: POTASSIUM CHLORIDE 10 MEQ 10 MEQ/100 ML BAG IV ONE (21:40)
[2019-03-18] MEDS ORDERED: SODIUM CHLORIDE 0.9% 1000 ML 1,000 ML IV SCH (21:45)
[2019-03-19] MEDS: methylPREDNISolone Sod Succinate 40 MG/1 ML INJ IV SCH ×4 (00:50→23:05)
[2019-03-19] MEDS: FAMOTIDINE 20 MG/2 ML INJ IV SCH ×3 (00:50→23:05)
[2019-03-19] MEDS: ENOXAPARIN 40 MG/0.4 ML INJ SUB-Q SCH ×3 (00:51→23:04)
[2019-03-19] MEDS: POTASSIUM CHLORIDE 10 MEQ 10 MEQ/100 ML BAG IV SCH (02:04)
[2019-03-19] MEDS: IPRATROPIUM/ALBUTEROL SULFATE 3 ML AMPUL.NEB IH SCH ×4 (02:37→20:31)
[2019-03-19 05:43] LABS: Hematocrit 36.1 % (30.3-42.9); Mean Corpuscular HGB Conc 33 % (30-34); Mean Corpuscular Volume 92 fl (79-97); Platelet Count 294 K/mm3 (140-440); Red Blood Count 3.92 M/mm3 (3.65-5.03); Red Cell Distribution Width 16.2 % (13.2-15.2)
[2019-03-19 05:47] LABS: Bacteria,Urine 1+ /HPF (Negative); Bilirubin,Urine NEG (Negative); Blood,Urine NEG (Negative); Color,Urine Yellow (Yellow); Hyaline Casts,Urine 3 /LPF; Mucus,Urine FEW /HPF; Protein,Urine <15 mg/dL mg/dL (Negative); Urobilinogen,Urine < 2.0 mg/dL (<2.0)
[2019-03-19 06:01] LABS: Calcium 9.3 mg/dL (8.4-10.2)
[2019-03-19 06:06] LABS: Amphetamine Screen,Urine PRESUMPTIVE NEGATIVE; Benzodiazepines Screen,Urine PRESUMPTIVE NEGATIVE; Cannabinoid Screen,Urine PRESUMPTIVE NEGATIVE; Cocaine Screen,Urine PRESUMPTIVE NEGATIVE; Methadone Screen,Urine PRESUMPTIVE NEGATIVE; Opiate Screen,Urine PRESUMPTIVE NEGATIVE
[2019-03-19 08:33] LABS: Monocytes % (Manual) 0 % (0.0-7.3); Total Cells Counted 100
[2019-03-19 08:34] LABS: Anisocytosis 1+; Basophils % (Manual) 0 % (0.0-1.8); Eosinophils % (Manual) 0 % (0.0-4.3); Hypochromasia 1+; Macrocytosis 1+; Platelet Estimate Consistent w Auto
[2019-03-19] MEDS: CEFEPIME/NS 2 GM/100 ML 2 GM/100 ML BAG IV SCH ×2 (11:00→23:03)
[2019-03-19] MEDS ORDERED: TEMAZEPAM 15 MG CAP PO PRN (13:04)
[2019-03-19] MEDS ORDERED: FUROSEMIDE 40 MG/4 ML INJ IV ONE (13:30)
--- NOTE | 2019-03-19 14:00 | Progress Note ---
Assessment and Plan Assessment and plan: Patient is 78-year-old female with a past medical history of diabetes mellitus, hypertension and asthma who presents to ER with complaints of difficulty breathing and cough since this evening. Patient reports recent history of pneumonia with outpatient treatment 01/2019. Her difficulty in breathing and cough are exacerbated this evening after she started to wheeze, her symptoms were made better with rest and the use of her inhaler. She reports her cough as unproductive and described as dry and hacking. She denies use of home oxygen, chest pain or nausea, vomiting. Acute Asthma exacerbation - Scheduled nebs, breathing treatment and as needed, empiric steroid - Supplemental oxygen to keep oxygen saturation above 92% - Consider to consult pulmonary if no improvement in next 24 hours -Antibiotic started prophylaxis in ED Hypokalemia-resolved -Severe -Potassium on admission 2.9 -Received potassium replacement -Follow-up on repeat potassium labs -Continue to monitor replete prn DM -POC BG monitoring -SSI coverage prn Metabolic acidosis -Give some bicarbonate continue to monitor Shortness of breath with bilateral lower extremity swelling -We will evaluate for possible underlying CHF -Obtain echocardiogram -Give a dose of Lasix today Hyperglycemia -Could be secondary to steroids or patient does have underlying diabetes mellitus -We will obtain hemoglobin A1c while continuing Accu-Cheks before meals and at bedtime Obesity -BMI 33.8kg -Counseled for diet and lifestyle modifications DVT prophylaxis -SCDs bilateral -Lovenox VTE prophylaxis?: Chemical Plan of care discussed with patient/family: Yes History Interval history: Patient seen and examined this morning reports improvement but still with shortness of breath and wheezing. Patient also reports bilateral lower extremity swelling. Hospitalist Physical - Physical exam Narrative exam: M VITAL SIGNS: Reviewed. GENERAL: The patient appears normally developed, morbid obesity vital signs as documented. HEAD: No signs of head trauma. EYES: Pupils are equal. Extraocular motions intact. EARS: Hearing grossly intact. MOUTH: Oropharynx is normal. NECK: No adenopathy, no JVD. CHEST: Chest with wheezing expiratory breath sounds bilaterally. CARDIAC: Regular rate and rhythm. S1 and S2, without murmurs, gallops, or rubs. VASCULAR: Trace edema. Peripheral pulses normal and equal in all extremities. ABDOMEN: Soft, non tender and non distended. No rebound or guarding, and no masses palpated. Bowel Sounds normal. MUSCULOSKELETAL: Good range of motion of all major joints. Extremities without clubbing, cyanosis. bilateral trace edema noted. NEUROLOGIC EXAM: Alert and oriented x 3 No focal sensory or strength deficits. Speech normal. Follows commands. PSYCHIATRIC: Mood normal. SKIN: detial exam as documented in skin assessment - Constitutional Vitals: Temp Pulse Resp BP Pulse Ox 98.7 F 82 19 156/77 99 03/19/19 11:53 03/19/19 13:37 03/19/19 13:37 03/19/19 11:53 03/19/19 11:53 Results - Labs CBC & Chem 7: 03/19/19 04:57 03/19/19 04:57 Labs: Laboratory Last Values WBC 8.8 K/mm3 (4.5-11.0) 03/19/19 04:57 RBC 3.92 M/mm3 (3.65-5.03) 03/19/19 04:57 Hgb 12.0 gm/dl (10.1-14.3) 03/19/19 04:57 Hct 36.1 % (30.3-42.9) 03/19/19 04:57 MCV 92 fl (79-97) 03/19/19 04:57 MCH 31 pg (28-32) 03/19/19 04:57 MCHC 33 % (30-34) 03/19/19 04:57 RDW 16.2 % (13.2-15.2) H 03/19/19 04:57 Plt Count 294 K/mm3 (140-440) 03/19/19 04:57 Lymph % (Auto) 8.9 % (13.4-35.0) L 03/18/19 19:06 [place] % (Auto) 3.8 % (0.0-7.3) 03/18/19 19:06 Eos % (Auto) 0.4 % (0.0-4.3) 03/18/19 19:06 Baso % (Auto) 0.3 % (0.0-1.8) 03/18/19 19:06 Lymph # 1.0 K/mm3 (1.2-5.4) L 03/18/19 19:06 [place] # 0.4 K/mm3 (0.0-0.8) 03/18/19 19:06 Eos # 0.0 K/mm3 (0.0-0.4) 03/18/19 19:06 Baso # 0.0 K/mm3 (0.0-0.1) 03/18/19 19:06 Add Manual Diff Complete 03/19/19 04:57 Total Counted 100 03/19/19 04:57 Seg Neutrophils % Linoleum Layer 03/19/19 04:57 Seg Neuts % (Manual) 94.0 % (40.0-70.0) H 03/19/19 04:57 Band Neutrophils % 0 % 03/19/19 04:57 Lymphocytes % (Manual) 6.0 % (13.4-35.0) L 03/19/19 04:57 Reactive Lymphs % (Man) 0 % 03/19/19 04:57 Monocytes % (Manual) 0 % (0.0-7.3) 03/19/19 04:57 Eosinophils % (Manual) 0 % (0.0-4.3) 03/19/19 04:57 Basophils % (Manual) 0 % (0.0-1.8) 03/19/19 04:57 Metamyelocytes % 0 % 03/19/19 04:57 Myelocytes % 0 % 03/19/19 04:57 Promyelocytes % 0 % 03/19/19 04:57 Blast Cells % 0 % 03/19/19 04:57 Nucleated RBC % Not Reportable 03/19/19 04:57 Seg Neutrophils # 9.3 K/mm3 (1.8-7.7) H 03/18/19 19:06 Seg Neutrophils # Man 8.3 K/mm3 (1.8-7.7) H 03/19/19 04:57 Band Neutrophils # 0.0 K/mm3 03/19/19 04:57 Lymphocytes # (Manual) 0.5 K/mm3 (1.2-5.4) L 03/19/19 04:57 Abs React Lymphs (Man) 0.0 K/mm3 03/19/19 04:57 Monocytes # (Manual) 0.0 K/mm3 (0.0-0.8) 03/19/19 04:57 Eosinophils # (Manual) 0.0 K/mm3 (0.0-0.4) 03/19/19 04:57 Basophils # (Manual) 0.0 K/mm3 (0.0-0.1) 03/19/19 04:57 Metamyelocytes # 0.0 K/mm3 03/19/19 04:57 Myelocytes # 0.0 K/mm3 03/19/19 04:57 Promyelocytes # 0.0 K/mm3 03/19/19 04:57 Blast Cells # 0.0 K/mm3 03/19/19 04:57 WBC Morphology Not Reportable 03/19/19 04:57 Hypersegmented Neuts Not Reportable 03/19/19 04:57 Hyposegmented Neuts Not Reportable 03/19/19 04:57 Hypogranular Neuts Not Reportable 03/19/19 04:57 Smudge Cells Not Reportable 03/19/19 04:57 Toxic Granulation Not Reportable 03/19/19 04:57 Toxic Vacuolation Not Reportable 03/19/19 04:57 Dohle Bodies Not Reportable 03/19/19 04:57 Pelger-Huet Anomaly Not Reportable 03/19/19 04:57 Melissa Rods Not Reportable 03/19/19 04:57 Platelet Estimate Consistent w auto 03/19/19 04:57 Clumped Platelets Not Reportable 03/19/19 04:57 Plt Clumps, EDTA Not Reportable 03/19/19 04:57 Large Platelets Not Reportable 03/19/19 04:57 Giant Platelets Not Reportable 03/19/19 04:57 Platelet Satelliting Not Reportable 03/19/19 04:57 Plt Morphology Comment Not Reportable 03/19/19 04:57 RBC Morphology Not Reportable 03/19/19 04:57 Dimorphic RBCs Not Reportable 03/19/19 04:57 Polychromasia Not Reportable 03/19/19 04:57 Hypochromasia 1+ 03/19/19 04:57 Poikilocytosis Not Reportable 03/19/19 04:57 Anisocytosis 1+ 03/19/19 04:57 Microcytosis Not Reportable 03/19/19 04:57 Macrocytosis 1+ 03/19/19 04:57 Spherocytes Not Reportable 03/19/19 04:57 Pappenheimer Bodies Not Reportable 03/19/19 04:57 Sickle Cells Not Reportable 03/19/19 04:57 Target Cells Not Reportable 03/19/19 04:57 Tear Drop Cells Not Reportable 03/19/19 04:57 Ovalocytes Not Reportable 03/19/19 04:57 Helmet Cells Not Reportable 03/19/19 04:57 Arora-Kotzeb[place] Bodies Not Reportable 03/19/19 04:57 [place] Rings Not Reportable 03/19/19 04:57 Aleta Cells Not Reportable 03/19/19 04:57 Bite Cells Not Reportable 03/19/19 04:57 Crenated Cell Not Reportable 03/19/19 04:57 Elliptocytes Not Reportable 03/19/19 04:57 Acanthocytes (Spur) Not Reportable 03/19/19 04:57 Rouleaux Not Reportable 03/19/19 04:57 Hemoglobin C Crystals Not Reportable 03/19/19 04:57 Schistocytes Not Reportable 03/19/19 04:57 Malaria parasites Not Reportable 03/19/19 04:57 Marquis Bodies Not Reportable 03/19/19 04:57 Hem Pathologist Commnt No 03/19/19 04:57 Sodium 142 mmol/L (137-145) 03/19/19 04:57 Potassium 4.0 mmol/L (3.6-5.0) D 03/19/19 04:57 Chloride 106.1 mmol/L (98-107) 03/19/19 04:57 Carbon Dioxide 17 mmol/L (22-30) L 03/19/19 04:57 Anion Gap 23 mmol/L 03/19/19 04:57 BUN 20 mg/dL (7-17) H 03/19/19 04:57 Creatinine 1.1 mg/dL (0.7-1.2) 03/19/19 04:57 Estimated GFR 48 ml/min 03/19/19 04:57 BUN/Creatinine Ratio 18 % 03/19/19 04:57 Glucose 254 mg/dL (65-100) H 03/19/19 04:57 POC Glucose 177 (70-105) H 03/19/19 12:01 Calcium 9.3 mg/dL (8.4-10.2) 03/19/19 04:57 Total Bilirubin < 0.20 mg/dL (0.1-1.2) 03/18/19 19:06 AST 20 units/L (5-40) 03/18/19 19:06 ALT 16 units/L (7-56) 03/18/19 19:06 Alkaline Phosphatase 47 units/L (35-129) 03/18/19 19:06 Troponin T < 0.010 ng/mL (0.00-0.029) 03/18/19 19:06 Total Protein 6.1 g/dL (6.3-8.2) L 03/18/19 19:06 Albumin 3.5 g/dL (3.9-5) L 03/18/19 19:06 Albumin/Globulin Ratio 1.3 % 03/18/19 19:06 Urine Color Yellow (Yellow) 03/19/19 04:45 Urine Turbidity Slightly-cloudy (Clear) 03/19/19 04:45 Urine pH 5.0 (5.0-7.0) 03/19/19 04:45 Ur Specific Broad Top 1.019 (1.003-1.030) 03/19/19 04:45 Urine Protein <15 mg/dl mg/dL (Negative) 03/19/19 04:45 Urine Glucose (UA) 50 mg/dL (Negative) 03/19/19 04:45 Urine Ketones Tr mg/dL (Negative) 03/19/19 04:45 Urine Blood Neg (Negative) 03/19/19 04:45 Urine Nitrite Neg (Negative) 03/19/19 04:45 Urine Bilirubin Neg (Negative) 03/19/19 04:45 Urine Urobilinogen < 2.0 mg/dL (<2.0) 03/19/19 04:45 Ur Leukocyte Esterase Tr (Negative) 03/19/19 04:45 Urine WBC (Auto) 5.0 /HPF (0.0-6.0) 03/19/19 04:45 Urine RBC (Auto) 3.0 /HPF (0.0-6.0) 03/19/19 04:45 U Epithel Cells (Auto) 3.0 /HPF (0-13.0) 03/19/19 04:45 Urine Bacteria (Auto) 1+ /HPF (Negative) 03/19/19 04:45 Hyaline Casts 3 /LPF 03/19/19 04:45 Urine Mucus Few /HPF 03/19/19 04:45 Urine Opiates Screen Presumptive negative 03/19/19 04:45 Urine Methadone Screen Presumptive negative 03/19/19 04:45 Ur Barbiturates Screen Presumptive negative 03/19/19 04:45 Ur Phencyclidine Scrn Presumptive negative 03/19/19 04:45 Ur Amphetamines Screen Presumptive negative 03/19/19 04:45 U Benzodiazepines Scrn Presumptive negative 03/19/19 04:45 Urine Cocaine Screen Presumptive negative 03/19/19 04:45 U Marijuana (THC) Screen Presumptive negative 03/19/19 04:45 Drugs of Abuse Note Disclamer 03/19/19 04:45 Active Medications - Current Medications Current Medications: Generic Name Dose Route Start Last Admin Trade Name Freq PRN Reason Stop Dose Admin Acetaminophen 650 mg 03/18/19 21:33 Tylenol PO Q4H PRN Pain MILD(1-3)/Fever >100.5/[place] Albuterol 2.5 mg 03/18/19 21:33 Proventil IH Q3HRT PRN Shortness Of Breath Albuterol/Ipratropium 1 ampul 03/19/19 02:00 03/19/19 13:37 Duoneb *Not For Prn Use* IH 1 ampul Q6HRT LEEANNA Administration Enoxaparin Sodium 40 mg 03/18/19 22:00 03/19/19 10:56 Enoxaparin SUB-Q 40 mg BID LEEANNA Administration Famotidine 20 mg 03/18/19 22:00 03/19/19 10:57 Pepcid IV 20 mg BID LEEANNA Administration Sodium Chloride 1,000 mls @ 125 mls/hr 03/18/19 21:45 Nacl 0.9% 1000 Ml IV DIRECT LEEANNA Cefepime HCl 2 gm in 100 mls @ 200 mls/hr 03/19/19 10:00 03/19/19 11:00 Cefepime/Ns 2 Gm/100 Ml IV 200 mls/hr Q12HR LEEANNA Administration Protocol Methylprednisolone Sodium Succinate 40 mg 03/18/19 22:00 03/19/19 13:44 Solu-Medrol IV 40 mg Q8HR LEEANNA Administration Ondansetron HCl 4 mg 03/18/19 21:33 Zofran IV Q8H PRN Nausea And Vomiting Oxycodone/Acetaminophen 1 tab 03/18/19 21:33 Percocet 5/325 PO Q6H PRN Pain, Moderate (4-6) Temazepam 15 mg 03/19/19 13:04 Restoril PO QHS PRN Sleep Nutrition/Malnutrition Assess - Dietary Evaluation Nutrition/Malnutrition Findings: Nutrition Notes Start: 03/19/19 11:37 Freq: Status: Active Protocol: Document 03/19/19 11:37 LM (Rec: 03/19/19 11:48 LM [email or web address]) Nutrition Notes Need for Assessment generated from: director 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 Pt unaware of any wt loss or her UBW. Pt ate about 60% of her breakfast this AM. Pt stated she has no back teeth and it is hard for her to eat. Offered pt a softer diet and pt agreed. Will change diet to [facility] soft. Burn Absent Trauma Absent GI Symptoms None Difficulty In Chewing Current % PO Fair (50-74%) Minimum of two criteria No physical signs of malnutrition #1 Nutrition Diagnosis Inadequate oral intake Etiology pt missing back teeth As Evidenced by Signs and Symptoms pt eating 60% of breakfast, needing softer diet Is patient on ventilator? No Is Patient Ambulatory and/or Out of Bed Yes REE-([facility]-ambulatory/OOB) [ 1564.875 NUTR.[id number]] Kcal/Kg value to use for calculation 13 Approximate Energy Requirements Using 1071 kcal/Kg Calculation Used for Recommendations Kcal/kg Additional Notes Protein: 62-74g (1-1.2g/kg AdjBW 62 kg) Fluid: 1 ml/kcal Nutrition Intervention Change Diet Order: Mechanical soft/cardiac/ consistent CHO Goal #1 Meet at least 75% of energy and protein needs Anticipated Discharge Needs: Mechanical soft/cardiac/ consistent CHO Follow-Up By: 03/22/19 Additional Comments F/U for diet tolerance/intakes
[2019-03-19] MEDS: BUDESONIDE 0.5 MG/2 ML NEBU IH SCH (20:31)
[2019-03-19] MEDS ORDERED: NON-FORMULARY EACH (Fluticasone/Salmeterol [Advair Diskus 100-50 Mcg] 1 PUFF) IH SCH (22:00)
[2019-03-19] MEDS ORDERED: PRAVASTATIN 80 MG TAB PO SCH (22:00)
[2019-03-19] MEDS ORDERED: NON-FORMULARY EACH (Simvastatin [Simvastatin] 40 MG) PO SCH (22:00)
[2019-03-19] MEDS: risperiDONE 0.25 MG TAB PO SCH (23:05)
[2019-03-20] MEDS: IPRATROPIUM/ALBUTEROL SULFATE 3 ML AMPUL.NEB IH SCH ×3 (04:02→13:25)
[2019-03-20] MEDS ORDERED: LEVOTHYROXINE 100 MCG TAB PO SCH (06:00)
[2019-03-20] MEDS: methylPREDNISolone Sod Succinate 40 MG/1 ML INJ IV SCH (06:23)
[2019-03-20] MEDS: BUDESONIDE 0.5 MG/2 ML NEBU IH SCH (08:22)
[2019-03-20 09:00] LABS: Calcium 9.4 mg/dL (8.4-10.2)
[2019-03-20] MEDS ORDERED: ROFLUMILAST PO SCH (10:00)
[2019-03-20] MEDS ORDERED: TORSEMIDE 10 MG TAB PO SCH (10:00)
[2019-03-20] MEDS ORDERED: SERTRALINE 25 MG TAB PO SCH (10:00)
[2019-03-20] MEDS ORDERED: amLODIPine 5 MG TAB PO SCH (10:00)
[2019-03-20] MEDS: risperiDONE 0.25 MG TAB PO SCH (10:40)
[2019-03-20] MEDS: FAMOTIDINE 20 MG/2 ML INJ IV SCH (10:40)
[2019-03-20] MEDS: ENOXAPARIN 40 MG/0.4 ML INJ SUB-Q SCH (10:40)
[2019-03-20] MEDS: CEFEPIME/NS 2 GM/100 ML 2 GM/100 ML BAG IV SCH (10:40)
--- NOTE | 2019-03-20 10:55 | Discharge Summary ---
Providers - Providers Date of Admission: 03/18/19 20:51 Attending physician: ZAIDA MARES MD Primary care physician: [employer] WORK[employer] Hospitalization Reason for admission: Shortness of breath Condition: Stable Hospital course: Patient is 78-year-old female with a past medical history of diabetes mellitus, hypertension and asthma who presents to ER with complaints of difficulty breathing and cough since this evening. Patient reports recent history of pneumonia with outpatient treatment 01/2019. Her difficulty in breathing and cough are exacerbated this evening after she started to wheeze, her symptoms were made better with rest and the use of her inhaler. She reports her cough as unproductive and described as dry and hacking. She denies use of home oxygen, chest pain or nausea, vomiting. * Ms. Hunt on Admission was started on steroid treatment and also diuresis and currently is doing well including antibiotic treatment. * She reports that her cough has improved. She is breathing better with no further wheezing. And is clinically stable for discharge * Her potassium was replaced and corrected on repeat lab * Echocardiogram is pending and she will follow with her primary import specialist. * We discussed weight loss strategies and outpatient evaluation for obstructive sleep apnea Acute Asthma exacerbation Hypokalemia-resolved DM Metabolic acidosis Acute on chronic congestive heart failure presumed systolic Obesity Disposition: TO HOME OR SELFCARE Time spent for discharge: 35-minute Core Measure Documentation - Palliative Care Palliative Care/ Comfort Measures: Not Applicable - Core Measures Any of the following diagnoses?: heart failure - Heart Failure Discharge Requirements HAWA/ARB for LVSD if EF <40%: Yes Beta michelle at discharge: Yes Exam - Physical Exam Narrative exam: M VITAL SIGNS: Reviewed. GENERAL: The patient appears normally developed, morbid obesity vital signs as documented. HEAD: No signs of head trauma. EYES: Pupils are equal. Extraocular motions intact. EARS: Hearing grossly intact. MOUTH: Oropharynx is normal. NECK: No adenopathy, no JVD. CHEST: Chest with clear expiratory breath sounds bilaterally. CARDIAC: Regular rate and rhythm. S1 and S2, without murmurs, gallops, or rubs. VASCULAR: Trace edema. Peripheral pulses normal and equal in all extremities. ABDOMEN: Soft, non tender and non distended. No rebound or guarding, and no masses palpated. Bowel Sounds normal. MUSCULOSKELETAL: Good range of motion of all major joints. Extremities without clubbing, cyanosis. bilateral trace edema noted. NEUROLOGIC EXAM: Alert and oriented x 3 No focal sensory or strength d eficits. Speech normal. Follows commands. PSYCHIATRIC: Mood normal. SKIN: detial exam as documented in skin assessment - Constitutional Vitals: Temp Pulse Resp BP Pulse Ox 97.4 F L 74 18 110/49 99 03/20/19 05:36 03/20/19 08:23 03/20/19 08:23 03/20/19 05:36 03/20/19 08:24 Plan Activity: advance as tolerated, fall precautions Diet: low fat, low salt, diabetic Special Instructions: record daily weights, record daily BP diary, record blood sugar diary Follow up with: PRIMARY CARE, [Primary Care Provider] - 7 Days ANGELICA BULLARD MD [Staff Physician] - 7 Days Prescriptions: predniSONE [Deltasone] 20 mg PO DAILY #5 tablet Torsemide [Demadex] 2 tab PO DAILY #30 tab cephALEXin [Keflex] 500 mg PO Q12HR #8 cap Albuterol INH(or & Nicu Only) [ProAir HFA Inhaler] 2 puff IH QID PRN #8.5 gram PRN Reason: Shortness Of Breath
[2019-03-20 11:37] VITALS: BP 128/68
== END 2019-03-20 15:17 | disposition home or self-care (01) | DRG 202 ==
LOC: ED 18:06 → 4A 20:51
PROVIDERS: ADMIT Internal Medicine Geriatric Medicine; ATTEND Internal Medicine
DX: J45.42 Moderate persistent asthma with status asthmaticus (principal); I50.23 Acute on chronic systolic (congestive) heart failure; I11.0 Hypertensive heart disease with heart failure; E66.9 Obesity, unspecified; E87.6 Hypokalemia; E11.65 Type 2 diabetes mellitus with hyperglycemia; Z79.899 Other long term (current) drug therapy; Z87.891 Personal history of nicotine dependence; Z79.84 Long term (current) use of oral hypoglycemic drugs; Z68.33 Body mass index [BMI] 33.0-33.9, adult; Z71.3 Dietary counseling and surveillance
CPT/HCPCS: 36415; 71045; 80048; 80053; 80307; 81001; 82962; 83735; 83880; 84484; 85007; 85025; 87116; 93005; 93010; 93306; 94640; 94644; 94760; G0378; A9270-GY; J0692; J1650; J1940; J2920; J2930; J3475; J3480

== ENCOUNTER 2021-06-28 14:53 | Emergency (ER) | payer MEDICARE ==
[2021-06-28] MEDS ORDERED: IPRATROPIUM 0.02% NEBU 2.5 ML IH ONE (15:44)
[2021-06-28] MEDS ORDERED: ALBUTEROL 2.5 MG/3 ML NEBU IH ONE (15:44)
[2021-06-28] MEDS ORDERED: predniSONE 20 MG TAB PO ONE ×2 (15:44→16:03)
[2021-06-28] MEDS ORDERED: ACETAMINOPHEN 500 MG TAB PO ONE (15:45)
[2021-06-28] MEDS ORDERED: PANTOPRAZOLE 40 MG TAB PO ONE (15:45)
[2021-06-28] MEDS ORDERED: IBUPROFEN 400 MG TAB PO ONE (16:02)
--- NOTE | 2021-06-28 16:04 | Emergency Department Report ---
ED General Adult HPI - General Chief complaint: Chest Pain Stated complaint: Chest wall pain after fall Time Seen by Provider: 06/28/21 15:50 Source: patient, RN notes reviewed, old records reviewed Mode of arrival: Ambulatory Limitations: No Limitations - History of Present Illness Initial comments: This is a pleasant and cooperative 80-year-old female, presenting to the ER today with a complaint of right anterior and lateral rib cage pain, after mechanical fall a day and a half ago. She has chronic cough, wheezing and shortness of breath. However, she denies additional complaints. She states that prior to the fall, she felt like she was in her usual state of health. Denies headache, neck pain, vomiting, diaphoresis, DVT/PE risk factors and urinary symptoms. [place] improved in the emergency room after albuterol, Atrovent, steroids and analgesia. Chest wall pain is sharp and increases with palpation and deep inspiration. It decreases with rest and position -: Sudden, days(s) Location: right (Right lateral Thora) Severity scale (0 -10): 5 Quality: aching Consistency: constant Improves with: rest Worsens with: movement - Related Data Home Medications Medication Instructions Recorded Confirmed Last Taken Amlodipine Besylate [Norvasc] 1 tab PO DAILY 03/18/19 03/18/19 Unknown Fluticasone/Salmeterol [Advair 1 puff IH BID 03/18/19 03/18/19 Unknown Diskus 100-50 mcg] Levothyroxine [Synthroid] 1 tab PO DAILY 03/18/19 03/18/19 Unknown Omeprazole 1 cap PO DAILY 03/18/19 03/18/19 Unknown Roflumilast [Daliresp] 1 tab PO DAILY 03/18/19 03/18/19 Unknown Sertraline [Zoloft] 1 tab PO DAILY 03/18/19 03/18/19 Unknown Simvastatin 40 mg PO HS 03/18/19 03/18/19 Unknown metFORMIN [Glucophage] 1 tab PO DAILY 03/18/19 03/18/19 Unknown risperiDONE [RisperDAL] 1 tab PO BID 03/18/19 03/18/19 Unknown Previous Rx's Medication Instructions Recorded Last Taken Type Albuterol Mdi (or & Nicu Only) 2 puff IH QID PRN #8.5 gram 03/20/19 Unknown Rx [ProAir HFA Inhaler] Torsemide [Demadex] 2 tab PO DAILY #30 tab 03/20/19 Unknown Rx cephALEXin [Keflex] 500 mg PO Q12HR #8 cap 03/20/19 Unknown Rx predniSONE [Deltasone] 20 mg PO DAILY #5 tablet 03/20/19 Unknown Rx Acetaminophen [Non-Aspirin Extra 500 mg PO Q6HR PRN #30 tablet 06/28/21 Unknown Rx Strength] Albuterol Sulfate [Albuterol 0.63% 0.63 mg IH Q4HR PRN #2 ml 06/28/21 Unknown Rx NEBS] Albuterol Sulfate [Proair 90 mcg IH Q4HR PRN #2 aer.pow.ba 06/28/21 Unknown Rx Respiclick] Ipratropium (Nf) [Atrovent] 2 puff IH Q6HR PRN #1 inha 06/28/21 Unknown Rx Ipratropium [Atrovent NEB] 0.5 mg IH Q4HR #2 ml 06/28/21 Unknown Rx predniSONE [Deltasone] 40 mg PO QDAY #8 tab 06/28/21 Unknown Rx Allergies Allergy/AdvReac Type Severity Reaction Status Date / Time No Known Allergies Allergy Verified 12/12/18 15:23 ED Review of Systems ROS: Stated complaint: CHEST PAIN/WEEZING Other details as noted in HPI Comment: All other systems reviewed and negative Respiratory: cough, wheezing Musculoskeletal: arthralgia, myalgia ED Past Medical Hx - Past Medical History Hx Hypertension: Yes Hx Diabetes: Yes Hx Asthma: Yes Hx COPD: Yes - Social History Smoking Status: Former Smoker Substance Use Type: None - Medications Home Medications: Home Medications Medication Instructions Recorded Confirmed Last Taken Type Amlodipine Besylate [Norvasc] 1 tab PO DAILY 03/18/19 03/18/19 Unknown History Fluticasone/Salmeterol [Advair 1 puff IH BID 03/18/19 03/18/19 Unknown History Diskus 100-50 mcg] Levothyroxine [Synthroid] 1 tab PO DAILY 03/18/19 03/18/19 Unknown History Omeprazole 1 cap PO DAILY 03/18/19 03/18/19 Unknown History Roflumilast [Daliresp] 1 tab PO DAILY 03/18/19 03/18/19 Unknown History Sertraline [Zoloft] 1 tab PO DAILY 03/18/19 03/18/19 Unknown History Simvastatin 40 mg PO HS 03/18/19 03/18/19 Unknown History metFORMIN [Glucophage] 1 tab PO DAILY 03/18/19 03/18/19 Unknown History risperiDONE [RisperDAL] 1 tab PO BID 03/18/19 03/18/19 Unknown History Albuterol Mdi (or & Nicu Only) 2 puff IH QID PRN #8.5 gram 03/20/19 Unknown Rx [ProAir HFA Inhaler] Torsemide [Demadex] 2 tab PO DAILY #30 tab 03/20/19 Unknown Rx cephALEXin [Keflex] 500 mg PO Q12HR #8 cap 03/20/19 Unknown Rx predniSONE [Deltasone] 20 mg PO DAILY #5 tablet 03/20/19 Unknown Rx Acetaminophen [Non-Aspirin Extra 500 mg PO Q6HR PRN #30 tablet 06/28/21 Unknown Rx Strength] Albuterol Sulfate [Albuterol 0.63% 0.63 mg IH Q4HR PRN #2 ml 06/28/21 Unknown Rx NEBS] Albuterol Sulfate [Proair 90 mcg IH Q4HR PRN #2 aer.pow.ba 06/28/21 Unknown Rx Respiclick] Ipratropium (Nf) [Atrovent] 2 puff IH Q6HR PRN #1 inha 06/28/21 Unknown Rx Ipratropium [Atrovent NEB] 0.5 mg IH Q4HR #2 ml 06/28/21 Unknown Rx predniSONE [Deltasone] 40 mg PO QDAY #8 tab 06/28/21 Unknown Rx ED Physical Exam - General Limitations: No Limitations General appearance: alert, in no apparent distress, obese - Head Head exam: Present: atraumatic, normocephalic - Eye Eye exam: Present: normal appearance, EOMI. Absent: nystagmus - ENT ENT exam: Present: normal exam, normal orophraynx, mucous membranes moist, normal external ear exam - Neck Neck exam: Present: normal inspection, full ROM. Absent: tenderness, meningi smus - Respiratory Respiratory exam: Present: normal lung sounds bilaterally, wheezes, rhonchi, chest wall tenderness. Absent: respiratory distress - Cardiovascular Cardiovascular Exam: Present: regular rate, normal rhythm, normal heart sounds. Absent: bradycardia, tachycardia, irregular rhythm, systolic murmur, diastolic murmur, rubs, gallop - GI/Abdominal GI/Abdominal exam: Present: soft. Absent: distended, tenderness, guarding, rebound, rigid, pulsatile mass - Extremities Exam Extremities exam: Present: normal inspection, full ROM, pedal edema (1+ edema), other (2+ pulses noted in the bilateral upper and lower extremities. There is no palpable cord. negative Homans sign. Muscular compartments are soft. The pelvis is stable.). Absent: calf tenderness - Back Exam Back exam: Present: normal inspection. Absent: tenderness, CVA tenderness (R), CVA tenderness (L), paraspinal tenderness, vertebral tenderness - Neurological Exam Neurological exam: Present: alert, oriented X3, other (No facial droop. Tongue midline. Extraocular movements intact bilaterally. Facial sensation intact to light touch in V1, V2, V3 distribution bilaterally. 5 and a 5 strength in 4 extremities. Sensation intact to light touch in 4 extremities.). Absent: motor sensory deficit - Psychiatric Psychiatric exam: Present: normal affect, normal mood - Skin Skin exam: Present: warm, dry, intact. Absent: normal color (Sunburn noted to the scalp, chest, bilateral upper extremities), rash ED Course Vital Signs 06/28/21 06/28/21 06/28/21 15:02 16:15 16:30 Temperature 98.4 F Pulse Rate 75 68 Pulse Rate [ 67 Bilateral Throughout] Respiratory 20 16 18 Rate Respiratory 18 Rate [Bilateral Throughout] Blood Pressure 143/91 [Right] O2 Sat by Pulse 98 Oximetry - Reevaluation(s) Reevaluation #1: 06/28/21 17:05 Differential diagnosis, including but not limited to: Costochondritis, rib contusion, pulmonary contusion, COPD, mechanical fall Assessment and plan: 80-year-old female with rib cage and chest wall tenderness after mechanical fall. She is afebrile with reassuring vital signs with reproducible tenderness. Has minimal wheezes. Feels improved after albuterol, Atrovent steroids and appropriate analgesia. Also given incentive spirometer EKG is essentially unremarkable. Patient reports all of her chest wall pain started after she fell onto her chest wall, and she denies DVT/PE risk factors. She is suitable to be discharged with albuterol, Atrovent, steroids, incentive spirometer, Tylenol, Motrin. Treat supportively and symptomatically for chest wall contusion/rib contusion. 06/28/21 17:15 ED Medical Decision Making - Lab Data Vital Signs 06/28/21 06/28/21 06/28/21 15:02 16:15 16:30 Temperature 98.4 F Pulse Rate 75 68 Pulse Rate [ 67 Bilateral Throughout] Respiratory 20 16 18 Rate Respiratory 18 Rate [Bilateral Throughout] Blood Pressure 143/91 [Right] O2 Sat by Pulse 98 Oximetry - EKG Data -: EKG Interpreted by Mi EKG shows normal: sinus rhythm Rate: normal - EKG Data 06/28/21 17:05 The EKG is interpreted at 15: 10 Sinus rhythm, 71 bpm. Normal axis, normal intervals, QTC 4 3 5 ms, normal P wave axis, minimal motion artifact, borderline left ventricular hypertrophy. This is not a STEMI. - Radiology Data Radiology results: pending, report reviewed, image reviewed CHEST 2 VIEWS INDICATION / CLINICAL INFORMATION: Dyspnea. COMPARISON: 03/18/2019 FINDINGS: SUPPORT DEVICES: None. HEART / MEDIASTINUM: No significant abnormality. LUNGS / PLEURA: No significant pulmonary or pleural abnormality. No pneumothorax. ADDITIONAL FINDINGS: Degenerative change throughout spine IMPRESSION: 1. No acute findings. Signer Name: Dheeraj Thurston MD Signed: 06/28/2021 5:07 PM Workstation Name: [id number] Critical care attestation.: If time is entered above; I have spent that time in minutes in the direct care of this critically ill patient, excluding procedure time. ED Disposition Clinical Impression: Chest wall contusion, COPD exacerbation Disposition: HOME / SELF CARE / HOMELESS Is pt being admited?: No Does the pt Need Aspirin: No Condition: Good Instructions: Chronic Obstructive Pulmonary Disease, [id number], Blunt Chest Trauma, Chronic Obstructive Pulmonary Disease (ED) Additional Instructions: Pain typically gets worse before gets better after mechanical fall. Use the incentive spirometer once every 1-2 hours as directed for the next 5 to 7 days. Take the prescribed pain medication as directed, patient may also take [id number] Motrin/ibuprofen as needed for physical pain. Take the steroids as directed, use the albuterol and Atrovent as directed. Please follow-up with your primary care doctor within the next week for repeat checkup and evaluation. Avoid heavy lifting and strenuous physical activity, and alternate ice packs and heat packs as needed for physical pain. Please return to the emergency room right away with new pain, worsened pain, migration of pain, projectile vomiting, change in mental status, confusion, inability tolerate liquid feeds, new, worsened or different symptoms not present on the initial emergency room evaluation Prescriptions: Albuterol Sulfate [Albuterol 0.63% NEBS] 0.63 mg IH Q4HR PRN #2 ml PRN Reason: Wheezing Ipratropium (Nf) [Atrovent] 2 puff IH Q6HR PRN #1 inha PRN Reason: Wheezing Ipratropium [Atrovent NEB] 0.5 mg IH Q4HR #2 ml predniSONE [Deltasone] 40 mg PO QDAY #8 tab Acetaminophen [Non-Aspirin Extra Strength] 500 mg PO Q6HR PRN #30 tablet PRN Reason: Pain , Severe (7-10) Albuterol Sulfate [Proair Respiclick] 90 mcg IH Q4HR PRN #2 aer.pow.ba PRN Reason: Wheezing Referrals: [facility] [Provider Group] - 3-5 Days
--- NOTE | 2021-06-28 18:11 | XRay Report ---
CHEST 2 VIEWS INDICATION / CLINICAL INFORMATION: Dyspnea. COMPARISON: 03/18/2019 FINDINGS: SUPPORT DEVICES: None. HEART / MEDIASTINUM: No significant abnormality. LUNGS / PLEURA: No significant pulmonary or pleural abnormality. No pneumothorax. ADDITIONAL FINDINGS: Degenerative change throughout spine IMPRESSION: 1. No acute findings. Signer Name: Dheeraj Thurston MD Signed: 06/28/2021 6:07 PM Workstation Name: [id number]
[2021-06-28 19:01] VITALS: BP 140/78
--- NOTE | 2021-06-29 09:46 | Electrocardiograph Report ---
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
== END 2021-06-28 18:55 | disposition home or self-care (01) ==
LOC: ED 14:53
DX: S20.211A Contusion of right front wall of thorax, initial encounter (principal); J44.1 Chronic obstructive pulmonary disease with (acute) exacerbation; I10 Essential (primary) hypertension; Z87.891 Personal history of nicotine dependence; Z79.899 Other long term (current) drug therapy; W18.39XA Other fall on same level, initial encounter; Y93.89 Activity, other specified; Y92.89 Other specified places as the place of occurrence of the external cause; Y99.8 Other external cause status
CPT/HCPCS: 71046; 93005; 94644; 99283

== ENCOUNTER 2021-11-04 14:00 | Inpatient (IN) | payer MEDICARE ==
[2021-11-04] MEDS ORDERED: methylPREDNISolone Sod Succinate 125 MG/2 ML INJ IM ONE (16:17)
[2021-11-04] MEDS ORDERED: IPRATROPIUM/ALBUTEROL SULFATE 3 ML AMPUL.NEB IH ONE (16:17)
--- NOTE | 2021-11-04 17:02 | XRay Report ---
CHEST 2 VIEWS INDICATION / CLINICAL INFORMATION: sob. COMPARISON: 06/28/2021 FINDINGS: SUPPORT DEVICES: None. HEART / MEDIASTINUM: Stable upper limits normal in size. LUNGS / PLEURA: No significant pulmonary or pleural abnormality. No pneumothorax. ADDITIONAL FINDINGS: Chronic posterior left rib fracture. IMPRESSION: 1. No acute findings. Signer Name: Santi Reid MD Signed: 11/04/2021 4:57 PM Workstation Name: [id number]
[2021-11-04] MEDS ORDERED: ACETAMINOPHEN 500 MG TAB PO ONE (23:54)
[2021-11-04] MEDS ORDERED: BENZONATATE 100 MG CAP PO ONE (23:54)
--- NOTE | 2021-11-04 23:55 | Emergency Department Report ---
ED General Adult HPI - General Chief complaint: Dyspnea/Respdistress Stated complaint: COUGHING/JACKSON/WHEEZING PUI?: No Time Seen by Provider: 11/04/21 23:47 Source: patient, RN notes reviewed, old records reviewed Mode of arrival: Ambulatory Limitations: No Limitations, Other (Patient is very hard of hearing) - History of Present Illness Initial comments: The patient was evaluated in the emergency department for symptoms described in the history of present illness. He/she was evaluated in the context of the global COVID-19 pandemic, which necessitated consideration that the patient might be at risk for infection with the virus that causes COVID-19. Institutional protocols and algorithms that pertain to the evaluation of patients at risk for COVID-19 are in a state of rapid change based on information released by regulatory bodies including the CDC and federal and state organizations. These policies and algorithms were followed during the patient's care in the emergency department. Please note that these policies, procedures and recommendations changed on a rapid basis. This is a pleasant and cooperative 80-year-old female with a history of obesity and COPD. She presents to the ER today with a complaint of cough, wheezing, chest wall tightness, and nasal congestion. She is not having chest wall tightness if she is not coughing. The patient reports no COVID symptoms. The patient reports that she is COVID-19 vaccinated. No complaint of fever, vomiting, or additional complaint. [place] improved with a lbuterol, Atrovent, DuoNeb and steroids -: Gradual Severity scale (0 -10): 2 Consistency: constant Improves with: rest Worsens with: other (Movement and coughing) - Related Data Home Medications Medication Instructions Recorded Confirmed Last Taken Amlodipine Besylate [Norvasc] 1 tab PO DAILY 03/18/19 03/18/19 Unknown Fluticasone/Salmeterol [Advair 1 puff IH BID 03/18/19 03/18/19 Unknown Diskus 100-50 mcg] Levothyroxine [Synthroid] 1 tab PO DAILY 03/18/19 03/18/19 Unknown Omeprazole 1 cap PO DAILY 03/18/19 03/18/19 Unknown Roflumilast [Daliresp] 1 tab PO DAILY 03/18/19 03/18/19 Unknown Sertraline [Zoloft] 1 tab PO DAILY 03/18/19 03/18/19 Unknown Simvastatin 40 mg PO HS 03/18/19 03/18/19 Unknown metFORMIN [Glucophage] 1 tab PO DAILY 03/18/19 03/18/19 Unknown risperiDONE [RisperDAL] 1 tab PO BID 03/18/19 03/18/19 Unknown Previous Rx's Medication Instructions Recorded Last Taken Type Albuterol Mdi (or & Nicu Only) 2 puff IH QID PRN #8.5 gram 03/20/19 Unknown Rx [ProAir HFA Inhaler] Torsemide [Demadex] 2 tab PO DAILY #30 tab 03/20/19 Unknown Rx cephALEXin [Keflex] 500 mg PO Q12HR #8 cap 03/20/19 Unknown Rx predniSONE [Deltasone] 20 mg PO DAILY #5 tablet 03/20/19 Unknown Rx Acetaminophen [Non-Aspirin Extra 500 mg PO Q6HR PRN #30 tablet 06/28/21 Unknown Rx Strength] Albuterol Sulfate [Albuterol 0.63% 0.63 mg IH Q4HR PRN #2 ml 06/28/21 Unknown Rx NEBS] Albuterol Sulfate [Proair 90 mcg IH Q4HR PRN #2 aer.pow.ba 06/28/21 Unknown Rx Respiclick] Ipratropium (Nf) [Atrovent] 2 puff IH Q6HR PRN #1 inha 06/28/21 Unknown Rx Ipratropium [Atrovent NEB] 0.5 mg IH Q4HR #2 ml 06/28/21 Unknown Rx predniSONE [Deltasone] 40 mg PO QDAY #8 tab 06/28/21 Unknown Rx Acetaminophen [Non-Aspirin Extra 500 mg PO Q6HR PRN #30 tablet 11/05/21 Unknown Rx Strength] Albuterol Sulfate [Albuterol 0.63% 0.63 mg IH Q4HR PRN #2 ml 11/05/21 Unknown Rx NEBS] Albuterol Sulfate [Proair 90 mcg IH Q4HR PRN #2 aer.pow.ba 11/05/21 Unknown Rx Respiclick] Benzonatate [Tessalon Perles] 100 mg PO Q8HR PRN #30 capsule 11/05/21 Unknown Rx Ipratropium (Nf) [Atrovent] 2 puff IH Q6HR PRN #1 inha 11/05/21 Unknown Rx Ipratropium [Atrovent NEB] 0.5 mg IH Q4HR #2 ml 11/05/21 Unknown Rx predniSONE [Deltasone] 40 mg PO QDAY #8 tab 11/05/21 Unknown Rx Allergies Allergy/AdvReac Type Severity Reaction Status Date / Time No Known Allergies Allergy Verified 11/04/21 16:20 ED Review of Systems ROS: Stated complaint: COUGHING/JACKSON/WHEEZING Other details as noted in HPI Constitutional: denies: fever ENT: congestion Respiratory: cough, shortness of breath, wheezing Cardiovascular: other (Chest tightness with cough) Gastrointestinal: denies: abdominal pain ED Past Medical Hx - Past Medical History Hx Hypertension: Yes Hx Diabetes: Yes Hx Asthma: Yes Hx COPD: Yes - Social History Smoking Status: Former Smoker Substance Use Type: None - Medications Home Medications: Home Medications Medication Instructions Recorded Confirmed Last Taken Type Amlodipine Besylate [Norvasc] 1 tab PO DAILY 03/18/19 03/18/19 Unknown History Fluticasone/Salmeterol [Advair 1 puff IH BID 03/18/19 03/18/19 Unknown History Diskus 100-50 mcg] Levothyroxine [Synthroid] 1 tab PO DAILY 03/18/19 03/18/19 Unknown History Omeprazole 1 cap PO DAILY 03/18/19 03/18/19 Unknown History Roflumilast [Daliresp] 1 tab PO DAILY 03/18/19 03/18/19 Unknown History Sertraline [Zoloft] 1 tab PO DAILY 03/18/19 03/18/19 Unknown History Simvastatin 40 mg PO HS 03/18/19 03/18/19 Unknown History metFORMIN [Glucophage] 1 tab PO DAILY 03/18/19 03/18/19 Unknown History risperiDONE [RisperDAL] 1 tab PO BID 03/18/19 03/18/19 Unknown History Albuterol Mdi (or & Nicu Only) 2 puff IH QID PRN #8.5 gram 03/20/19 Unknown Rx [ProAir HFA Inhaler] Torsemide [Demadex] 2 tab PO DAILY #30 tab 03/20/19 Unknown Rx cephALEXin [Keflex] 500 mg PO Q12HR #8 cap 03/20/19 Unknown Rx predniSONE [Deltasone] 20 mg PO DAILY #5 tablet 03/20/19 Unknown Rx Acetaminophen [Non-Aspirin Extra 500 mg PO Q6HR PRN #30 tablet 06/28/21 Unknown Rx Strength] Albuterol Sulfate [Albuterol 0.63% 0.63 mg IH Q4HR PRN #2 ml 06/28/21 Unknown Rx NEBS] Albuterol Sulfate [Proair 90 mcg IH Q4HR PRN #2 aer.pow.ba 06/28/21 Unknown Rx Respiclick] Ipratropium (Nf) [Atrovent] 2 puff IH Q6HR PRN #1 inha 06/28/21 Unknown Rx Ipratropium [Atrovent NEB] 0.5 mg IH Q4HR #2 ml 06/28/21 Unknown Rx predniSONE [Deltasone] 40 mg PO QDAY #8 tab 06/28/21 Unknown Rx Acetaminophen [Non-Aspirin Extra 500 mg PO Q6HR PRN #30 tablet 11/05/21 Unknown Rx Strength] Albuterol Sulfate [Albuterol 0.63% 0.63 mg IH Q4HR PRN #2 ml 11/05/21 Unknown Rx NEBS] Albuterol Sulfate [Proair 90 mcg IH Q4HR PRN #2 aer.pow.ba 11/05/21 Unknown Rx Respiclick] Benzonatate [Tessalon Perles] 100 mg PO Q8HR PRN #30 capsule 11/05/21 Unknown Rx Ipratropium (Nf) [Atrovent] 2 puff IH Q6HR PRN #1 inha 11/05/21 Unknown Rx Ipratropium [Atrovent NEB] 0.5 mg IH Q4HR #2 ml 11/05/21 Unknown Rx predniSONE [Deltasone] 40 mg PO QDAY #8 tab 11/05/21 Unknown Rx ED Physical Exam - General Limitations: Other (Patient is very hard of hearing) General appearance: alert, in no apparent distress - Head Head exam: Present: atraumatic, normocephalic - Eye Eye exam: Present: normal appearance, EOMI. Absent: nystagmus - ENT ENT exam: Present: normal exam, normal orophraynx, mucous membranes moist, normal external ear exam - Neck Neck exam: Present: normal inspection, full ROM. Absent: tenderness, meningismus - Respiratory Respiratory exam: Present: wheezes, rhonchi, stridor, chest wall tenderness. Absent: respiratory distress - Cardiovascular Cardiovascular Exam: Present: regular rate, normal rhythm, normal heart sounds. Absent: bradycardia, tachycardia, irregular rhythm, systolic murmur, diastolic murmur, rubs, gallop - GI/Abdominal GI/Abdominal exam: Present: soft. Absent: distended, tenderness, guarding, rebound, rigid, pulsatile mass - Extremities Exam Extremities exam: Present: normal inspection, full ROM, other (2+ pulses noted in the bilateral upper and lower extremities. There is no palpable cord. negative Homans sign. Muscular compartments are soft. The pelvis is stable.). Absent: pedal edema, calf tenderness - Back Exam Back exam: Present: normal inspection. Absent: tenderness, CVA tenderness (R), CVA tenderness (L), paraspinal tenderness, vertebral tenderness - Neurological Exam Neurological exam: Present: alert, normal gait, other (There is no facial droop. The tongue is midline. EOMI. 5 out of 5 strength in 4 extremities. Sensation is intact to light touch in 4 extremities). Absent: motor sensory deficit - Psychiatric Psychiatric exam: Present: flat affect - Skin Skin exam: Present: warm, dry, intact, normal color. Absent: rash ED Course Vital Signs 11/04/21 11/05/21 16:16 00:16 Temperature 97.9 F Pulse Rate 77 Pulse Rate [ 73 Throughout] Respiratory 14 Rate Respiratory 17 Rate [ Throughout] Blood Pressure 128/90 [Right] O2 Sat by Pulse 92 Oximetry - Reevaluation(s) Reevaluation #1: 11/05/21 00:28 Differential diagnosis, including not limited to: Costochondritis, COPD exacerbation Assessment and plan: 80-year-old female with chest wall pain, coughing, wheezing and shortness of breath, denies fever, loss of taste and smell, most likely mi ld bronchitis/COPD exacerbation, with superimposed costochondritis Treat with albuterol, Atrovent, patient has already received DuoNeb and steroids. Obtain EKG, administer Tessalon Perles and acetaminophen. Reassess after initial therapy 11/05/21 01:28 Patient is still wheezing and short of breath. Additional therapy ordered. Laboratory studies ordered. Patient agreeable to admission hospitalization for COPD exacerbation 11/05/21 02:34 DR Brandon Baron to admit to IMS Uncertain if leukocytosis stress reaction, secondary to steroids, or acutely related to infectious pathology. Potassium supplementation ordered. Insulin ordered. Magnesium level pending. IV fluids ordered. ED Medical Decision Making - Lab Data Result diagrams: 11/05/21 01:27 11/05/21 01:27 Vital Signs 11/04/21 11/05/21 16:16 00:16 Temperature 97.9 F Pulse Rate 77 Pulse Rate [ 73 Throughout] Respiratory 14 Rate Respiratory 17 Rate [ Throughout] Blood Pressure 128/90 [Right] O2 Sat by Pulse 92 Oximetry Lab Results 11/05/21 11/05/21 11/05/21 Range/Units 01:27 01:27 01:27 WBC 17.6 H (4.5-11.0) K/mm3 RBC 3.82 (3.65-5.03) M/mm3 Hgb 11.2 (10.1-14.3) gm/dl Hct 34.2 (30.3-42.9) % MCV 89 (79-97) fl MCH 29 (28-32) pg MCHC 33 (30-34) % RDW 15.8 H (13.2-15.2) % Plt Count 321 (140-440) K/mm3 PT 13.9 (12.2-14.9) Sec. INR 0.94 (0.87-1.13) Sodium 134 L (137-145) mmol/L Potassium 3.2 L (3.6-5.0) mmol/L Chloride 96.0 L (98-107) mmol/L Carbon Dioxide 23 (22-30) mmol/L Anion Gap 18 mmol/L BUN 20 H (7-17) mg/dL Creatinine 1.3 H (0.6-1.2) mg/dL Estimated GFR 40 ml/min BUN/Creatinine Ratio 15 % Glucose 323 H (65-100) mg/dL Calcium 8.4 (8.4-10.2) mg/dL Total Creatine Kinase 250 H (30-135) units/L Troponin T < 0.010 (0.00-0.029) ng/mL - EKG Data -: EKG Interpreted by Co EKG shows normal: sinus rhythm Rate: normal - EKG Data 11/05/21 00:40 The EKG is interpreted at 12: 31 Sinus rhythm, 71 bpm. Normal axis, normal P wave axis, left ventricular hypertrophy, motion artifact, QTC 4 7 6 ms. This is an abnormal EKG. This is not a STEMI. - Radiology Data Radiology results: pending, report reviewed, image reviewed CHEST 2 VIEWS INDICATION / CLINICAL INFORMATION: sob. COMPARISON: 06/28/2021 FINDINGS: SUPPORT DEVICES: None. HEART / MEDIASTINUM: Stable upper limits normal in size. LUNGS / PLEURA: No significant pulmonary or pleural abnormality. No pneumothorax. ADDITIONAL FINDINGS: Chronic posterior left rib fracture. IMPRESSION: 1. No acute findings. Signer Name: Santi Reid MD Signed: 11/04/2021 3:57 PM Workstation Name: [id number] Critical care attestation.: If time is entered above; I have spent that time in minutes in the direct care of this critically ill patient, excluding procedure time. ED Disposition Clinical Impression: COPD exacerbation, Hypokalemia, Hyperglycemia Disposition: ADMITTED INPATIENT Is pt being admited?: Yes Does the pt Need Aspirin: No Condition: Good Instructions: Chronic Obstructive Pulmonary Disease, [id number], Chronic Obstructive Pulmonary Disease (ED) Additional Instructions: Please take the albuterol and Atrovent daily as directed. Please take the steroids as directed. Use the Tessalon Perles as needed for cough, and acetaminophen as needed for physical pain. Please follow-up with your primary care doctor or gravel hauler within the next 5 to 7 days. Please return to the emergency room right away with new pain, worsened pain, migration of pain, projectile vomiting, change in mental status, confusion, inability tolerate liquid feeds, new, worsened or different symptoms not present on the initial emergency room evaluation Prescriptions: Albuterol Sulfate [Albuterol 0.63% NEBS] 0.63 mg IH Q4HR PRN #2 ml PRN Reason: Wheezing Ipratropium (Nf) [Atrovent] 2 puff IH Q6HR PRN #1 inha PRN Reason: Wheezing Ipratropium [Atrovent NEB] 0.5 mg IH Q4HR #2 ml predniSONE [Deltasone] 40 mg PO QDAY #8 tab Acetaminophen [Non-Aspirin Extra Strength] 500 mg PO Q6HR PRN #30 tablet PRN Reason: Pain , Severe (7-10) Albuterol Sulfate [Proair Respiclick] 90 mcg IH Q4HR PRN #2 aer.pow.ba PRN Reason: Wheezing Benzonatate [Tessalon Perles] 100 mg PO Q8HR PRN #30 capsule PRN Reason: Cough Referrals: PITO MCWILLIAMS MD [Staff Physician] - 3-5 Days RHIANNA KHAN MD [Staff Physician] - 3-5 Days
[2021-11-04] MEDS ORDERED: IPRATROPIUM 0.02% NEBU 2.5 ML IH ONE (23:59)
[2021-11-04] MEDS ORDERED: ALBUTEROL 2.5 MG/3 ML NEBU IH ONE (23:59)
[2021-11-05] MEDS ORDERED: IPRATROPIUM/ALBUTEROL SULFATE 3 ML AMPUL.NEB IH ONE ×4 (00:07→10:48)
[2021-11-05] MEDS ORDERED: DOXYCYCLINE 100 MG CAP PO ONE (01:00)
[2021-11-05 02:13] LABS: Hematocrit 34.2 % (30.3-42.9); Hemoglobin 11.2 gm/dl (10.1-14.3); Mean Corpuscular HGB Conc 33 % (30-34); Mean Corpuscular Volume 89 fl (79-97); Platelet Count 321 K/mm3 (140-440); Red Blood Count 3.82 M/mm3 (3.65-5.03); Red Cell Distribution Width 15.8 % (13.2-15.2)
[2021-11-05 02:14] LABS: BUN/Creatinine Ratio 15; Blood Urea Nitrogen 20 mg/dL (7-17); Calcium 8.4 mg/dL (8.4-10.2); Hemolysis Index 8
[2021-11-05 02:22] LABS: INR 0.94 (0.87-1.13)
[2021-11-05] MEDS ORDERED: POTASSIUM CHLORIDE ER 20 MEQ TAB PO ONE (02:28)
[2021-11-05] MEDS ORDERED: INSULIN REGULAR, HUMAN 100 UNITS/1 ML IV ONE (02:28)
[2021-11-05] MEDS ORDERED: SODIUM CHLORIDE 0.9% 500 ML 500 ML IV ONE (02:29)
[2021-11-05] MEDS ORDERED: MAGNESIUM HYDROXIDE (MOM) ORAL LIQD UDC PO PRN (03:21)
[2021-11-05] MEDS ORDERED: ONDANSETRON 4 MG/2 ML INJ IV PRN (03:21)
[2021-11-05] MEDS ORDERED: MORPHINE 4 MG/1 ML INJ IV PRN (03:21)
[2021-11-05] MEDS ORDERED: ACETAMINOPHEN 325 MG TAB PO PRN (03:21)
[2021-11-05] MEDS ORDERED: DEXTROSE 50% IN WATER (25GM) 50 ML SYRINGE IV PRN (03:21)
[2021-11-05] MEDS ORDERED: MORPHINE 2 MG/1 ML INJ IV PRN (03:21)
[2021-11-05] MEDS ORDERED: SODIUM CHLORIDE 0.9% 1000 ML 1,000 ML IV SCH (03:30)
--- NOTE | 2021-11-05 03:33 | History and Physical Report ---
History of Present Illness Date of examination: 11/05/21 Date of admission: 11/05/2021 Chief complaint: Cough Shortness of Breath History of present illness: 80-year-old female with known history of COPD presenting in the emergency room today complaining of, shortness of breath and chest tightness for the past few days. She also indicates she has been having some nasal congestion. She denies any fever or chills, no nausea vomiting and no abdominal pain. Patient denies any sick contacts and no recent travel. Denies any contact with anyone with COVID-19. Patient is fully vaccinated against COVID-19. Upon arrival in the emergency room patient was found to be wheezing. She had some nebulizing treatment with significant improvement. Work-up in the emergency room today reveals a leukocytosis of 17. Blood glucose was in the 200s and she also had a mild hypokalemia of 3.2. Chest x-ray was unremarkable. Patient is being admitted for COPD exacerbation. Past History Past Medical History: COPD, diabetes, hypertension, hypothyroidism, other (Asthma) Past Surgical History: No surgical history Social history: smoking (Former Smoker) Family history: no significant family history Medications and Allergies Allergies Allergy/AdvReac Type Severity Reaction Status Date / Time No Known Allergies Allergy Verified 11/04/21 16:20 Home Medications Medication Instructions Recorded Confirmed Last Taken Type Amlodipine Besylate [Norvasc] 1 tab PO DAILY 03/18/19 03/18/19 Unknown History Fluticasone/Salmeterol [Advair 1 puff IH BID 03/18/19 03/18/19 Unknown History Diskus 100-50 mcg] Levothyroxine [Synthroid] 1 tab PO DAILY 03/18/19 03/18/19 Unknown History Omeprazole 1 cap PO DAILY 03/18/19 03/18/19 Unknown History Roflumilast [Daliresp] 1 tab PO DAILY 03/18/19 03/18/19 Unknown History Sertraline [Zoloft] 1 tab PO DAILY 03/18/19 03/18/19 Unknown History Simvastatin 40 mg PO HS 03/18/19 03/18/19 Unknown History metFORMIN [Glucophage] 1 tab PO DAILY 03/18/19 03/18/19 Unknown History risperiDONE [RisperDAL] 1 tab PO BID 03/18/19 03/18/19 Unknown History Albuterol Mdi (or & Nicu Only) 2 puff IH QID PRN #8.5 gram 03/20/19 Unknown Rx [ProAir HFA Inhaler] Torsemide [Demadex] 2 tab PO DAILY #30 tab 03/20/19 Unknown Rx cephALEXin [Keflex] 500 mg PO Q12HR #8 cap 03/20/19 Unknown Rx predniSONE [Deltasone] 20 mg PO DAILY #5 tablet 03/20/19 Unknown Rx Acetaminophen [Non-Aspirin Extra 500 mg PO Q6HR PRN #30 tablet 06/28/21 Unknown Rx Strength] Albuterol Sulfate [Albuterol 0.63% 0.63 mg IH Q4HR PRN #2 ml 06/28/21 Unknown Rx NEBS] Albuterol Sulfate [Proair 90 mcg IH Q4HR PRN #2 aer.pow.ba 06/28/21 Unknown Rx Respiclick] Ipratropium (Nf) [Atrovent] 2 puff IH Q6HR PRN #1 inha 06/28/21 Unknown Rx Ipratropium [Atrovent NEB] 0.5 mg IH Q4HR #2 ml 06/28/21 Unknown Rx predniSONE [Deltasone] 40 mg PO QDAY #8 tab 06/28/21 Unknown Rx Acetaminophen [Non-Aspirin Extra 500 mg PO Q6HR PRN #30 tablet 11/05/21 Unknown Rx Strength] Albuterol Sulfate [Albuterol 0.63% 0.63 mg IH Q4HR PRN #2 ml 11/05/21 Unknown Rx NEBS] Albuterol Sulfate [Proair 90 mcg IH Q4HR PRN #2 aer.pow.ba 11/05/21 Unknown Rx Respiclick] Benzonatate [Tessalon Perles] 100 mg PO Q8HR PRN #30 capsule 11/05/21 Unknown Rx Ipratropium (Nf) [Atrovent] 2 puff IH Q6HR PRN #1 inha 11/05/21 Unknown Rx Ipratropium [Atrovent NEB] 0.5 mg IH Q4HR #2 ml 11/05/21 Unknown Rx predniSONE [Deltasone] 40 mg PO QDAY #8 tab 11/05/21 Unknown Rx Active Meds: Active Medications Acetaminophen (Acetaminophen 325 Mg Tab) 650 mg PO Q4H PRN PRN Reason: Pain MILD(1-3)/Fever >100.5/[place] Dextrose (Dextrose 50% In Water (25gm) 50 Ml Syringe) 50 ml IV Q30MIN PRN; Protocol PRN Reason: Hypoglycemia Sodium Chloride (Nacl 0.9% 1000 Ml) 1,000 mls @ 75 mls/hr IV DIRECT LEEANNA Insulin Human Lispro (Insulin Lispro 100 Unit/Ml) 0 unit SUB-Q Q6HR LEEANNA; Protocol Magnesium Hydroxide (Magnesium Hydroxide (Mom) Oral Liqd Udc) 30 ml PO Q4H PRN PRN Reason: Constipation Methylprednisolone Sodium Succinate (Methylprednisolone Sod Succinate 40 Mg/1 Ml Inj) 40 mg IV Q8HR LEEANNA Morphine Sulfate (Morphine 2 Mg/1 Ml Inj) 2 mg IV Q4H PRN PRN Reason: Pain, Moderate (4-6) Morphine Sulfate (Morphine 4 Mg/1 Ml Inj) 4 mg IV Q4H PRN PRN Reason: Pain , Severe (7-10) Ondansetron HCl (Ondansetron 4 Mg/2 Ml Inj) 4 mg IV Q8H PRN PRN Reason: Nausea And Vomiting Sodium Chloride (Sodium Chloride 0.9% 10 Ml Flush Syringe) 10 ml IV BID LEEANNA Sodium Chloride (Sodium Chloride 0.9% 10 Ml Flush Syringe) 10 ml IV PRN PRN PRN Reason: LINE FLUSH Review of Systems Constitutional: no fever, no chills Ears, nose, mouth and throat: nasal congestion, no sore throat Cardiovascular: no chest pain, no palpitations Respiratory: cough, shortness of breath Gastrointestinal: no abdominal pain, no nausea, no vomiting, no diarrhea Genitourinary Female: no pelvic pain, no flank pain Musculoskeletal: no neck pain, no low back pain Integumentary: no rash, no pruritis Neurological: no headaches, no confusion Psychiatric: no anxiety, no depression Endocrine: no polyphagia, no polydipsia, no polyuria, no nocturia Exam - Constitutional Vitals: Temp Pulse Resp BP Pulse Ox 97.9 F 73 17 128/90 92 11/04/21 16:16 11/05/21 00:16 11/05/21 00:16 11/04/21 16:16 11/04/21 16:16 General appearance: Present: no acute distress, well-nourished - EENT Eyes: Present: PERRL, EOM intact. Absent: scleral icterus ENT: hearing intact, clear oral mucosa, dentition normal - Neck Neck: Present: supple, normal ROM - Respiratory Respiratory effort: normal Respiratory: bilateral: wheezing (Few scattered wheezes bilaterally) - Cardiovascular Rhythm: regular Heart Sounds: Present: S1 & S2. Absent: gallop, systolic murmur, diastolic murmur, rub, click - Extremities Extremities: no ischemia, pulses intact, pulses symmetrical, No edema, normal temperature, normal color, Full ROM Peripheral Pulses: within normal limits - Abdominal General gastrointestinal: Present: soft, non-tender, non-distended, normal bowel sounds. Absent: mass - Integumentary Integumentary: Present: clear, warm, dry, normal turgor. Absent: rash - Musculoskeletal Musculoskeletal: strength equal bilaterally - Psychiatric Psychiatric: appropriate mood/affect, intact judgment & insight, memory intact, cooperative - Neurologic Neurologic: CNII-XII intact, no focal deficits, moves all extremities HEART Score - HEART Score Troponin: Troponin T < 0.010 ng/mL (0.00-0.029) 11/05/21 01:27 Results - Labs CBC & Chem 7: 11/05/21 01:27 11/05/21 01:27 Labs: Abnormal lab results 11/05/21 11/05/21 Range/Units 01:27 01:27 WBC 17.6 H (4.5-11.0) K/mm3 RDW 15.8 H (13.2-15.2) % Sodium 134 L (137-145) mmol/L Potassium 3.2 L (3.6-5.0) mmol/L Chloride 96.0 L (98-107) mmol/L BUN 20 H (7-17) mg/dL Creatinine 1.3 H (0.6-1.2) mg/dL Glucose 323 H (65-100) mg/dL Total Creatine Kinase 250 H (30-135) units/L Assessment and Plan Assessment: 1.COPD Exac 2.D/[place] 3.Hypertension 4. Hypokalemia Plan: 1. Patient admitted and placed on nebulizing treatments and IV steroid. We will keep O2 saturation greater equal to 92%. 2. Potassium will be repleted and will monitor chemistry. 3. Patient placed on sliding scale insulin. We will monitor Accu-Cheks. DVT Prophylaxis:SQ Heparin Code Status: Full Code
[2021-11-05] MEDS ORDERED: OMEPRAZOLE PO SCH (10:00)
[2021-11-05] MEDS ORDERED: ROFLUMILAST 500 MCG PO SCH (10:00)
[2021-11-05] MEDS: methylPREDNISolone Sod Succinate 40 MG/1 ML INJ IV SCH ×3 (10:50→23:32)
[2021-11-05] MEDS: PANTOPRAZOLE 40 MG TAB PO SCH (10:51)
[2021-11-05] MEDS: SERTRALINE 25 MG TAB PO SCH (10:52)
[2021-11-05] MEDS: amLODIPine 5 MG TAB PO SCH (10:52)
[2021-11-05] MEDS: risperiDONE 0.25 MG TAB PO SCH ×2 (10:52→23:31)
[2021-11-05] MEDS: LEVOTHYROXINE 100 MCG TAB PO SCH (10:53)
[2021-11-05] MEDS: INSULIN LISPRO 100 UNIT/ML SUB-Q SCH ×3 (11:05→18:00)
[2021-11-05] MEDS: TORSEMIDE 10 MG TAB PO SCH (13:14)
--- NOTE | 2021-11-05 14:41 | Event Note ---
Date: 11/05/21 Patient seen and examined, admitted for acute respiratory failure with COPD exacerbation Continue empiric steroid, antibiotics and scheduled nebulizer breathing treatment Vitals noted and stable, continue to provide supportive care
[2021-11-05] MEDS ORDERED: NON-FORMULARY EACH (Simvastatin [Simvastatin] 40 MG Tablet) PO SCH (22:00)
[2021-11-06 05:56] LABS: Hematocrit 31.2 % (30.3-42.9); Hemoglobin 10.6 gm/dl (10.1-14.3); Mean Corpuscular HGB Conc 34 % (30-34); Mean Corpuscular Volume 88 fl (79-97); Platelet Count 333 K/mm3 (140-440); Red Blood Count 3.55 M/mm3 (3.65-5.03); Red Cell Distribution Width 15.8 % (13.2-15.2)
[2021-11-06 06:05] LABS: Calcium 8.3 mg/dL (8.4-10.2)
[2021-11-06] MEDS: methylPREDNISolone Sod Succinate 40 MG/1 ML INJ IV SCH ×3 (06:14→21:10)
[2021-11-06] MEDS: LEVOTHYROXINE 100 MCG TAB PO SCH (06:14)
[2021-11-06 06:46] LABS: Basophils % (Manual) 0 % (0.0-1.8); Eosinophils % (Manual) 0 % (0.0-4.3); Monocytes % (Manual) 0 % (0.0-7.3); Platelet Estimate Consistent w Auto; Total Cells Counted 100
[2021-11-06] MEDS: INSULIN LISPRO 100 UNIT/ML SUB-Q SCH ×4 (07:41→21:10)
[2021-11-06] MEDS: TORSEMIDE 10 MG TAB PO SCH (10:38)
[2021-11-06] MEDS: amLODIPine 5 MG TAB PO SCH (10:38)
[2021-11-06] MEDS: PANTOPRAZOLE 40 MG TAB PO SCH (10:38)
[2021-11-06] MEDS: risperiDONE 0.25 MG TAB PO SCH ×2 (10:38→21:10)
[2021-11-06] MEDS: SERTRALINE 25 MG TAB PO SCH (10:38)
--- NOTE | 2021-11-06 14:29 | Progress Note ---
Assessment and Plan 1.COPD Exac with acute hypoxic respiratory failure 2.D/[place] 3.Hypertension 4. Hypokalemia Plan: 1. Patient admitted and placed on nebulizing treatments and IV steroid. We will keep O2 saturation greater equal to 92%. 2. Potassium will be repleted and will monitor chemistry. 3. Patient placed on sliding scale insulin. We will monitor Accu-Cheks. DVT Prophylaxis:SQ Heparin Code Status: Full Code Subjective Date of service: 11/06/21 Objective - Constitutional Vitals: Vital Signs - 12hr 11/06/21 11/06/21 11/06/21 07:30 11:03 12:53 Temperature 98.0 F 98.2 F Pulse Rate 82 70 Respiratory 18 19 18 Rate Blood Pressure 118/49 119/54 O2 Sat by Pulse 96 98 98 Oximetry - Labs CBC & Chem 7: 11/06/21 05:12 11/06/21 05:12 Labs: Abnormal lab results 11/05/21 11/05/21 11/06/21 Range/Units 17:10 21:16 05:12 WBC 19.6 H (4.5-11.0) K/mm3 RBC 3.55 L (3.65-5.03) M/mm3 RDW 15.8 H (13.2-15.2) % Seg Neuts % (Manual) 98.0 H (40.0-70.0) % Lymphocytes % (Manual) 2.0 L (13.4-35.0) % Seg Neutrophils # Man 19.2 H (1.8-7.7) K/mm3 Lymphocytes # (Manual) 0.4 L (1.2-5.4) K/mm3 Carbon Dioxide (22-30) mmol/L BUN (7-17) mg/dL Creatinine (0.6-1.2) mg/dL Glucose (65-100) mg/dL POC Glucose 256 H 260 H (70-105) mg/dL Calcium (8.4-10.2) mg/dL 11/06/21 11/06/21 11/06/21 Range/Units 05:12 07:33 11:03 WBC (4.5-11.0) K/mm3 RBC (3.65-5.03) M/mm3 RDW (13.2-15.2) % Seg Neuts % (Manual) (40.0-70.0) % Lymphocytes % (Manual) (13.4-35.0) % Seg Neutrophils # Man (1.8-7.7) K/mm3 Lymphocytes # (Manual) (1.2-5.4) K/mm3 Carbon Dioxide 21 L (22-30) mmol/L BUN 40 H (7-17) mg/dL Creatinine 1.6 H (0.6-1.2) mg/dL Glucose 253 H (65-100) mg/dL POC Glucose 246 H 249 H (70-105) mg/dL Calcium 8.3 L (8.4-10.2) mg/dL HEART Score - HEART Score Troponin: Troponin T < 0.010 ng/mL (0.00-0.029) 11/05/21 01:27
[2021-11-07] MEDS: LEVOTHYROXINE 100 MCG TAB PO SCH (06:06)
[2021-11-07] MEDS: methylPREDNISolone Sod Succinate 40 MG/1 ML INJ IV SCH ×3 (06:07→22:21)
[2021-11-07] MEDS: PANTOPRAZOLE 40 MG TAB PO SCH (08:22)
[2021-11-07] MEDS: INSULIN LISPRO 100 UNIT/ML SUB-Q SCH ×4 (08:22→22:22)
[2021-11-07] MEDS: SERTRALINE 25 MG TAB PO SCH (09:43)
[2021-11-07] MEDS: TORSEMIDE 10 MG TAB PO SCH (09:43)
[2021-11-07] MEDS: amLODIPine 5 MG TAB PO SCH (09:43)
[2021-11-07] MEDS: risperiDONE 0.25 MG TAB PO SCH ×2 (09:44→22:22)
[2021-11-07] MEDS: IPRATROPIUM/ALBUTEROL SULFATE 3 ML AMPUL.NEB IH SCH ×2 (14:15→21:01)
--- NOTE | 2021-11-07 17:13 | Electrocardiograph Report ---
[facility] Test Date: 2021-11-05 Test Time: 00:31:30 Pat Name: ADITI MAIK Department: Room: A454 Gender: F [employer]er: KINDRA : 1940 Requested By: SILVESTRE KEITH Order Number: [id number] Reading MD: Soo Dawson Measurements Intervals Bureau Rate: 71 P: 40 [place]: 148 QRS: 10 QRSD: 90 T: 42 QT: 437 QTc: 476 Interpretive Statements Sinus rhythm Compared to ECG 06/28/2021 15:10:36 No significant changes Electronically Signed On 11-07-2021 17:13:08 EDT by Soo Dawson
--- NOTE | 2021-11-07 23:50 | Progress Note ---
Assessment and Plan 1.COPD Exac with acute hypoxic respiratory failure 2.D/Mellitus 3.Hypertension 4. Hypokalemia Plan: 1. Patient admitted and placed on nebulizing treatments and IV steroid. We will keep O2 saturation greater equal to 92%. 2. Potassium will be repleted and will monitor chemistry. 3. Patient placed on sliding scale insulin. We will monitor Accu-Cheks. DVT Prophylaxis:SQ Heparin Code Status: Full Code Subjective Date of service: 11/07/21 Objective - Constitutional Vitals: Vital Signs - 12hr 11/07/21 11/07/21 11/07/21 13:02 14:15 15:08 Temperature 98.0 F Pulse Rate 72 Pulse Rate [ 74 Throughout] Respiratory 18 16 Rate Respiratory 18 Rate [ Throughout] Blood Pressure 123/48 O2 Sat by Pulse 98 99 100 Oximetry 11/07/21 11/07/21 11/07/21 20:08 21:02 23:40 Temperature 97.9 F 97.5 F L Pulse Rate 75 67 Pulse Rate [ 70 Throughout] Respiratory 19 20 Rate Respiratory 18 Rate [ Throughout] Blood Pressure 133/60 109/50 O2 Sat by Pulse 89 98 Oximetry - Labs CBC & Chem 7: 11/06/21 05:12 11/06/21 05:12 Labs: Abnormal lab results 11/06/21 11/07/21 11/07/21 Range/Units 20:27 07:18 10:45 POC Glucose 240 H 192 H 306 H (70-105) mg/dL 11/07/21 11/07/21 11/07/21 Range/Units 15:06 15:08 20:43 POC Glucose 114 H 286 H 284 H (70-105) mg/dL HEART Score - HEART Score Troponin: Troponin T < 0.010 ng/mL (0.00-0.029) 11/05/21 01:27
[2021-11-08] MEDS: IPRATROPIUM/ALBUTEROL SULFATE 3 ML AMPUL.NEB IH SCH ×3 (01:44→15:10)
[2021-11-08] MEDS: LEVOTHYROXINE 100 MCG TAB PO SCH (05:41)
[2021-11-08] MEDS: methylPREDNISolone Sod Succinate 40 MG/1 ML INJ IV SCH (05:41)
[2021-11-08] MEDS: INSULIN LISPRO 100 UNIT/ML SUB-Q SCH ×3 (08:40→17:35)
[2021-11-08] MEDS ORDERED: methylPREDNISolone Sod Succinate 40 MG/1 ML INJ IV SCH (10:00)
[2021-11-08 10:07] LABS: Hematocrit 36.9 % (30.3-42.9); Mean Corpuscular HGB Conc 33 % (30-34); Mean Corpuscular Volume 89 fl (79-97); Platelet Count 358 K/mm3 (140-440); Red Blood Count 4.13 M/mm3 (3.65-5.03); Red Cell Distribution Width 16.1 % (13.2-15.2)
[2021-11-08 11:00] LABS: Calcium 8.6 mg/dL (8.4-10.2)
[2021-11-08] MEDS: risperiDONE 0.25 MG TAB PO SCH (11:16)
[2021-11-08] MEDS: amLODIPine 5 MG TAB PO SCH (11:16)
[2021-11-08] MEDS: SERTRALINE 25 MG TAB PO SCH (11:16)
[2021-11-08] MEDS: TORSEMIDE 10 MG TAB PO SCH (11:16)
[2021-11-08] MEDS: PANTOPRAZOLE 40 MG TAB PO SCH (11:19)
--- NOTE | 2021-11-08 12:13 | Discharge Summary ---
Providers - Providers Date of Admission: 11/05/21 03:21 Date of discharge: 11/08/21 Attending physician: DIAZ GARVEY Primary care physician: FIDEL STEINER Hospitalization Condition: Good Disposition: 06 HOME HEALTH CARE SERVICE Final Discharge Diagnosis (Prints w/discharge instructions): 1.COPD Exac with acute hypoxic respiratory failure. 2.D/Mellitus. 3.Hypertension. 4. Hypokalemia. 6. JANE with vasomotor nephropathy Time spent for discharge: 34 minutes Core Measure Documentation - Palliative Care Palliative Care/ Comfort Measures: Not Applicable - Core Measures Any of the following diagnoses?: none Exam - Constitutional Vitals: Temp Pulse Resp BP Pulse Ox 98.2 F 71 18 135/75 96 11/08/21 08:00 11/08/21 08:52 11/08/21 08:52 11/08/21 08:00 11/08/21 10:00 Plan Activity: fall precautions Diet: low fat, low salt Follow up with: PITO MCWILLIAMS MD [Staff Physician] - 3-5 Days RHIANNA KHAN MD [Staff Physician] - 3-5 Days Prescriptions: Albuterol Sulfate [Albuterol 0.63% NEBS] 0.63 mg IH Q4HR PRN #2 ml PRN Reason: Wheezing Ipratropium (Nf) [Atrovent] 2 puff IH Q6HR PRN #1 inha PRN Reason: Wheezing Ipratropium [Atrovent NEB] 0.5 mg IH Q4HR #2 ml predniSONE [Deltasone] 40 mg PO QDAY #8 tab Acetaminophen [Non-Aspirin Extra Strength] 500 mg PO Q6HR PRN #30 tablet PRN Reason: Pain , Severe (7-10) Albuterol Sulfate [Proair Respiclick] 90 mcg IH Q4HR PRN #2 aer.[email or web address] PRN Reason: Wheezing Benzonatate [Tessalon Perles] 100 mg PO Q8HR PRN #30 capsule PRN Reason: Cough
[2021-11-08] MEDS ORDERED: POTASSIUM CHLORIDE ER 20 MEQ TAB PO SCH (13:00)
[2021-11-08 17:24] VITALS: BP 119/46
== END 2021-11-08 19:00 | disposition home or self-care (01) | DRG 189 ==
LOC: ED 14:00 → 4A 11-05 03:21
PROVIDERS: ADMIT Internal Medicine Geriatric Medicine; ATTEND Internal Medicine
DX: J96.01 Acute respiratory failure with hypoxia (principal); N17.0 Acute kidney failure with tubular necrosis; J44.1 Chronic obstructive pulmonary disease with (acute) exacerbation; E87.6 Hypokalemia; I10 Essential (primary) hypertension; Z87.891 Personal history of nicotine dependence; E11.65 Type 2 diabetes mellitus with hyperglycemia
CPT/HCPCS: 36415; 71046; 80048; 82550; 82962; 83735; 84484; 85007; 85025; 85027; 85610; 93005; 94640; 94644; 94760; 99285; 99406; G0378; Q9967; J1815; J2920; J2930; J7030